=== PATIENT | female | born 1970 | race Caucasian/White ===

== ENCOUNTER → 2018-10-23 | Outpatient (CLI) | payer OTHER, SELFPAY ==
--- NOTE | 2018-10-23 15:31 | CT_ITS ---
STUDY: CT MAXILLOFACIAL SINUSES REASON FOR EXAM: Female, 48 years old. Chronic sinusitis. RADIATION DOSAGE (If Supplied By Facility): CTDIvol = ( 33.06 ) mGy, DLP = ( 879.30 ) mGycm TECHNIQUE: The patient was scanned in a multi detector CT scanner. High resolution axial imaging was performed without the administration of intravenous contrast material. Sagittal and coronal images were reconstructed. Individualized dose optimization techniques were used for this CT. COMPARISON: None. FINDINGS: Near total opacification of the frontal and ethmoid sinuses. Total opacification of the sphenoid sinuses. Moderate right and severe left maxillary sinus mucosal thickening. Occlusion of the bilateral maxillary infundibuli with normal uncinate processes, ethmoid bullae, and hiatus semilunaris. The turbinates are edematous left greater than right.. Normal midline nasal septum. Mastoid air cells are well aerated. The visualized osseous structures are normal. The visualized bilateral orbital contents are normal. CT/Sinus/Facial Bone IMPRESSION: Pansinusitis with most severe involvement of the sphenoid and ethmoid sinuses. Occlusion of the osteomeatal complexes. Electronically Signed: Rickey Torres MD at 4:18 EDT , Service support ,
== END | disposition home or self-care (01) ==
LOC: CT 15:27
PROVIDERS: Family Provider Family Medicine; PCP Family Medicine; Referring Provider Otolaryngology; Visit Provider Otolaryngology
DX: J32.9 Chronic sinusitis, unspecified (principal); J33.9 Nasal polyp, unspecified
CPT/HCPCS: 70486

== ENCOUNTER → 2018-12-12 | Outpatient (CLI) | payer OTHER, SELFPAY ==
[2017-02-02 13:45] VITALS: BMI 27.4
[2018-12-12 10:56] LABS: AST(SGOT) 35 U/L (15-37); Alanine Aminotransfer ALT/SGPT 33 U/L (13-56); Albumin, Serum 3.6 g/dL (3.2-5.0); Alkaline Phosphatase 103 U/L (45-117); Bilirubin, Direct 0.08 mg/dL (0.00-0.30); Calcium,Total 9.2 mg/dL (8.5-10.1); Free T3 1.7 pg/mL (2.18-3.98); Globulin 3.7 g/dL (2.2-4.2); Protein, Total 7.3 g/dL (6.4-8.2); T4 Free Direct 0.16 ng/dL (0.76-1.46)
[2018-12-12 15:11] LABS: Absolute Lymphocyte Count 1.76 X10^3/uL (0.83-4.51); Basophil# 0.06 X10^3/uL; Basophil% 0.7 % (0-1); Eosinophil# 0.58 X10^3/uL; Eosinophils% 6.4 % (0-5); Hematocrit 37.9 % (37-47); Lymphocyte # 1.76 X10^3/ul (4.0); Lymphocyte % 19.5 % (19-41); Mean Corp Hgb Conc 31.7 g/dL (32-36); Mean Corpuscular Hgb 28.8 pg (27.0-32.0); Mean Corpuscular Volume 91.1 fL (81-99); Mean Platelet Vol. 8.8 fl (6.2-12.0); Monocyte# 0.63 X10^3/uL; NRBC Flagged by Analyzer 0 % (0-5); Neutrophil # 5.99 X10^3/uL (2.7-7.7); Neutrophil % 66.2 % (47-70); Platelet Count 302 K/mm3 (150-450); RBC Distribution Width CV 13.8 % (11.6-14.6); RBC Distribution Width SD 46.4 fl (35.1-43.9); Red Blood Count 4.16 M/mm3 (4.2-5.4)
[2018-12-14 11:12] LABS: Thyroglobulin Antibody 42.7 IU/mL (0.0-0.9); Thyroid Peroxidase AB 426 IU/mL (0-34)
== END | disposition home or self-care (01) ==
PROVIDERS: Family Provider Family Medicine; PCP Family Medicine; Referring Provider Family Medicine; Visit Provider Family Medicine
DX: E05.00 Thyrotoxicosis with diffuse goiter without thyrotoxic crisis or storm (principal); R94.5 Abnormal results of liver function studies; E83.52 Hypercalcemia
CPT/HCPCS: 36415; 80076; 82310; 84439; 84443; 84445; 84481; 85025; 86376; 86800

== ENCOUNTER 2019-01-07 07:33 | Day surgery (SDC) | payer OTHER, SELFPAY ==
[2017-02-02 13:45] VITALS: BMI 27.4
--- NOTE | 2019-01-07 07:52 | EKG12_ITS ---
Test Reason : PREOP Blood Pressure : / mmHG Vent. Rate : 065 BPM Atrial Rate : 065 BPM P-R Int : 210 ms QRS Dur : 084 ms QT Int : 412 ms P-R-T Axes : 056 061 029 degrees QTc Int : 428 ms Sinus rhythm with 1st degree A-V block Otherwise normal ECG Confirmed by ABDIRIZAK JIMÉNEZ ([id number]), publications editor MIRELLA DAVIES ([id number]) on 01/14/2019 2:26:24 PM Referred By: Bhupendra Cortez Confirmed By:ABDIRIZAK JIMÉNEZ
[2019-01-07 08:05] LABS: Internal QC Validated? YES +Cl - CLEAR BKGD; Pregnancy, Urine Negative Negative
[2019-01-07 08:13] LABS: Hematocrit 37.5 % (37-47); Hemoglobin 11.5 g/dL (12.0-15.0); Mean Corp Hgb Conc 30.7 g/dL (32-36); Mean Corpuscular Hgb 27.4 pg (27.0-32.0); Mean Corpuscular Volume 89.5 fL (81-99); Mean Platelet Vol. 8.2 fl (6.2-12.0); Platelet Count 353 K/mm3 (150-450); RBC Distribution Width CV 14.6 % (11.6-14.6); Red Blood Count 4.19 M/mm3 (4.2-5.4)
[2019-01-07 08:24] VITALS: BP 107/64; PULSE 64; RESP 16; TEMP 36.9; O2SAT 99; BMI 28.6
[2019-01-07 08:36] LABS: Anion Gap 5 (5-15); BUN 13 mg/dL (7-18); BUN/Creat Ratio 21.8 RATIO (10-20); Chloride 105 mmol/L (98-107); EST Glomerular Filtration Rate 115 mL/min (>60); Est Glom Filt Rate - Afr Amer 139 mL/min (>60); Estimated Creatinine Clearance 125.35 ml/min; Glucose 98 mg/dL (74-106); Potassium 4.3 mmol/L (3.5-5.1); Sodium Level 140 mmol/L (136-145)
[2019-01-07] MEDS: Oxymetazoline 0.05% 1 SPRAY SPRAY.BTL 3 SPRAY NASAL (08:54)
--- NOTE | 2019-01-07 09:30 | ETH_PTH ---
PATIENT: KRISTI COOK LOC: [facility] – [place] U#:[id number] AGE/SX: 48/F ROOM: RE01/07/[address]: Dr. Bhupendra Cortez MD : 1970 BED: DIS: 01/07/2019 SPEC #: [id number] RECD: 01/07/19 12:24 STATUS: BRENNA JEAN #: [id number] RONALD: 01/07/19 09:[address]: Bhupendra Cortez DEPT: SURGICAL PATHOLOGY RECD BY: Nadeem Ortiz ENTERED: 01/07/19 13:27 SP TYPE: ETH TISS OTHR DR: Dr. Tiana Kumari MD Tissues: A - Ethmoid sinus, NOS B - Ethmoid sinus, NOS Procedures: Decalcification bone/plaque Surgery Specimen Level IV HEADER OPERATION: Total ethmoidectomy, maxillary antrostomy with tissue removal PRE-OP DIAGNOSIS: Nasal congestion, polyp nasal cavity, deviated septum TISSUE SUBMITTED: A. Right sinus contents, B. Left sinus contents MICROSCOPIC DIAGNOSIS A. Right sinus contents: Fragments of respiratory mucosa with chronic inflammation and bone. B. Left sinus contents: Fragments of respiratory mucosa with chronic inflammation and bone. HARDEEP:serge 01/10/19 MICROSCOPIC DESCRIPTION Slides are reviewed. GROSS DESCRIPTION A - Received in fixative is one container labeled with the patient's name and designated right sinus contents. The specimen consists of multiple fragments of pink frothy soft tissue mixed with possible fragments of bone that in aggregate measure 5 x 3 x 0.3 cm. The entire specimen is submitted in two cassettes after decalcification. B - Received in fixative is one container labeled with the patient's name and designated left sinus contents. The specimen consists of multiple fragments of pink frothy soft to mucoid tissue mixed with possible fragments of bone that in aggregate measure 7.5 x 3 x 0.3 cm. The entire specimen is submitted in three cassettes after decalcification. / HARDEEP:serge 01/07/19 TC: 3 CPT: 75236 x2, 14985 x2
[2019-01-07] MEDS: Oxymetazoline 0.05% 1 SPRAY SPRAY.BTL 15 SPRAY (10:40)
[2019-01-07] MEDS: Mupirocin Ointment 22gm Tube 1 APPLIC (10:50)
--- NOTE | 2019-01-07 10:50 | DCINST_ITS ---
You will use the following diet at home:: No restrictions Your food should be the consistency of: Regular Discharge Activity: Return to Normal Activity Additional Activity Instructions:: No noseblowing. Start irrigation with saline (4x/day) tomorrow. Allergies/Adverse Reactions: Allergies No Known Allergies Allergy (Verified 12/31/18 09:21) Medications to take at Discharge Ascorbic Acid [Vitamin C] 500 mg PO DAILY@0800 01/22/16 Cholecalciferol (Vitamin D3) [D3-2000] 4,000 unit PO DAILY 01/22/16 Methimazole 5 mg PO TID 01/22/16 Rivaroxaban [Xarelto] 20 mg PO DAILY 01/22/16 Biotin 10,000 mcg PO DAILY 01/03/17 Losartan Potassium [Cozaar] 25 mg PO DAILY 01/03/17 Prednisone 10 mg PO DAILY 12/31/18 Sea Of Greens 6 tab PO DAILY 12/31/18 Propranolol HCl 20 mg PO DAILY 01/07/19 Primary Care Physician: Tiana Kumari [Primary Care Provider] - Test Results: Test results from this visit will be discussed in further detail at your follow- up appointment, if applicable.
[2019-01-07 10:55] VITALS: BP 107/64; BP 130/81; PULSE 76; RESP 18; TEMP 36.4; O2SAT 97
--- NOTE | 2019-01-07 10:59 | PCM.OPRPT ---
Report of Operation Date of Procedure: 01/07/19 Pre-Operative Diagnosis: chronic sinusitis Post-Operative Diagnosis: same Surgery/Procedure Performed:: bilateral total ethmoidectomy, bilateral maxillary antrostomy with tissue removal, bilateral sphenoidotomy Description of Surgical Findings:: chronic inflammation and polyps. Fluid in the left maxillary sinus and bilateral sphenoid Type of Anesthesia:: General Anesthesiologist: Raymundo Jimenez Specimen's removed: as above Estimated Blood Loss (mL): minimal Description of Procedure: The patient was taken to the OR on 01/07/19. She was placed in the supine position on the OR table. She was given sufficient general endotracheal anesthesia. The head of bed was elevated 30 degrees. The navigation was placed and registered per protocol. 1%lidocaine with epinephrine was injected into bilateral polyps, bilateral middle turbinates and bilateral uncinate processes. The right middle turbinate was medialized with a freer elevator. A large mass of polyp was removed from the middle meatus with a microdebrider. A ball tipped sinus seeker was inserted into the right maxillary sinus. The maxillary antrostomy was created with a back biter. Polyp was removed from the maxillary sinus with a microdebrider. The uncinate process was taken down with a microdebrider. The ethmoid bulla was opened with a curette. The ethmoidectomy was then completed with a curette, Blakesley-wild forceps and a microdebrider. The right sphenoid was entered with a suction tip in the midline. This was confirmed with navigation. I then created a sphenoidotomy with a microdebrider. Hemostasis was achieved with afrin pledgets and then Ale. The left middle turbinate was medialized with a freer elevator. A large mass of polyp was removed from the middle meatus with a microdebrider. A ball tipped sinus seeker was inserted into the left maxillary sinus. The maxillary antrostomy was created with a back biter. Thick secretions were suctioned from the maxillary sinus. Polyp was removed from the maxillary sinus with a microdebrider. The uncinate process was taken down with a microdebrider. The ethmoid bulla was opened with a curette. The ethmoidectomy was then completed with a curette, Blakesley-wild forceps and a microdebrider. The left sphenoid was entered with a suction tip in the midline. This was confirmed with navigation. I then created a sphenoidotomy with a microdebrider. Thick inspissated secretions were suctioned from the sphenoid. Hemostasis was achieved with afrin pledgets and then Ale. The patient was then awoken and brought to the recovery room in stable condition. Blood loss minimal, replacement none. Sponge, needle and instrument count were correct at the end of the procedure.
[2019-01-07 11:00] VITALS: BP 107/64; BP 128/87; PULSE 71; RESP 16; O2SAT 97
[2019-01-07 11:15] VITALS: BP 107/64; BP 123/75; PULSE 68; RESP 16; TEMP 36.4; O2SAT 98
[2019-01-07] MEDS: HYDROcodone Bitartrate/Apap 5/325 Tablet PO (11:59)
[2019-01-07 12:39] VITALS: BP 107/64; BP 130/87; PULSE 72; RESP 16; TEMP 37.1; O2SAT 97
== END 2019-01-07 13:02 | disposition home or self-care (01) ==
LOC: SDC 07:38 → AC 07:40
PROVIDERS: Anesthesiology; Family Provider Family Medicine; PCP Family Medicine; Referring Provider Otolaryngology; Visit Provider Otolaryngology
PROC: (CPT 30520; principal; 2019-01-07 09:15)
DX: J34.2 Deviated nasal septum (principal); J33.0 Polyp of nasal cavity; J32.8 Other chronic sinusitis; R09.81 Nasal congestion; D64.9 Anemia, unspecified; D68.59 Other primary thrombophilia; F17.200 Nicotine dependence, unspecified, uncomplicated; I48.91 Unspecified atrial fibrillation; Z86.718 Personal history of other venous thrombosis and embolism; Z86.711 Personal history of pulmonary embolism; Z79.52 Long term (current) use of systemic steroids; Z79.02 Long term (current) use of antithrombotics/antiplatelets; Z79.899 Other long term (current) drug therapy
CPT/HCPCS: 31259; 31267; 36415; 80048; 81025; 84443; 85027; 88305; 88311; 93005; J7120; J2405

== ENCOUNTER → 2019-02-07 | Outpatient (CLI) | payer OTHER, SELFPAY ==
[2019-02-07 12:30] LABS: Calcium,Total 9.1 mg/dL (8.5-10.1); T4 Free Direct 0.64 ng/dL (0.76-1.46); Thyroid Stim Hormone (TSH) 0.44 uIU/mL (0.358-3.74)
[2019-02-17 11:26] LABS: Anti-Thyroglobulin AB 60.2 IU/mL (0.0-0.9); Thyroglobulin RIA 126 ng/mL (.); Thyroid Peroxidase AB 290 IU/mL (0-34)
== END | disposition home or self-care (01) ==
PROVIDERS: Family Provider Family Medicine; PCP Family Medicine; Referring Provider Family Medicine; Visit Provider Family Medicine
DX: R93.1 Abnormal findings on diagnostic imaging of heart and coronary circulation (principal); E05.00 Thyrotoxicosis with diffuse goiter without thyrotoxic crisis or storm
CPT/HCPCS: 36415; 82310; 84432; 84439; 84443; 84445; 84481; 86376; 86800

== ENCOUNTER → 2020-04-29 13:24 | Outpatient (CLI) | payer OTHER, SELFPAY ==
--- NOTE | 2020-04-29 13:33 | US_ITS ---
STUDY: THYROID ULTRASOUND REASON FOR EXAM: Female, 49 years old. GOITER, GRAVE''S DISEASE TECHNIQUE: Ultrasound evaluation of the thyroid was performed with real-time and static youngblood-scale imaging. COMPARISON: None. FINDINGS: RIGHT LOBE: The right lobe of the thyroid gland is enlarged and measures 8.7 cm x 4.4 cm x 3.3 cm. There is a heterogeneous echotexture. There is a 1.4 cm x 1 cm x 1.1 cm hyperechoic solid nodule in the inferior aspect of the right lobe. There is evidence of intranodular as well as perinodular vascularity. There is also evidence of a 3 mm x 3 mm x 4 mm solid hyperechoic nodule in the mid pole. Increased perinodular and into the nodule vascularity. LEFT LOBE: The left lobe of the thyroid gland is enlarged and measures 8.2 cm x 2.9 cm x 2.9 cm. There is a heterogeneous echotexture. There are no demonstrated solid, cystic or complex lesions. ISTHMUS: The isthmus measures 2.5 cm. 2 nodules are seen in the isthmus the larger measures 1 cm x 1.1 cm x 1.2 cm. The regional lymph nodes are normal. US/Thyroid IMPRESSION: Enlarged heterogeneous thyroid gland with nodular densities in the right lobe and isthmus. Electronically Signed: Alexey Sandra, at 15:27 EST , Service support ,
== END ==
PROVIDERS: PCP Family Medicine; Referring Provider Family Medicine; Visit Provider Family Medicine
DX: E04.9 Nontoxic goiter, unspecified (principal); E05.00 Thyrotoxicosis with diffuse goiter without thyrotoxic crisis or storm
CPT/HCPCS: 76536

== ENCOUNTER → 2020-06-12 16:15 | Outpatient (CLI) | payer OTHER, SELFPAY ==
--- NOTE | 2020-06-12 13:00 | ASPS_PTH ---
PATIENT: KRISTI COOK LOC: [facility] U#:[id number] AGE/SX: 54/F ROOM: RE06/12/[address]: Dr. Prince Marquez MD : 1970 BED: DIS: SPEC #: [id number] RECD: 06/12/20 16:03 STATUS: BRENNA JEAN #: [id number] RONALD: 06/12/20 13:[address]: Prince Marquez DEPT: CYTOLOGY RECD BY: Roxanna Brown ENTERED: 06/15/20 07:42 SP TYPE: ASPIRATION OTHR DR: Dr. Tiana Kumari MD Tissues: Thyroid isthmus Procedures: Special Stain Group II Cytology Other HEADER OPERATION: Isthmus biopsy PRE-OP DIAGNOSIS: Isthmus nodule TISSUE SUBMITTED: Isthmus slides x6 DIAGNOSIS CYTOLOGY Fine needle aspiration, thyroid isthmus nodule (smears): Adequate for evaluation. Negative, consistent with benign follicular nodule. AM:serge 06/16/2020 CYTOLOGY STUDY Slides are reviewed. CYTOLOGY GROSS Received are six smears labeled with the patient's name and designated per the requisition as isthmus. Submitted for staining. / rg 06/15/2020 TC:5 CPT: 57424
[2020-06-12 14:09] VITALS: BMI 31.3
== END ==
PROVIDERS: PCP Family Medicine; Referring Provider Surgery; Visit Provider Surgery
DX: J38.2 Nodules of vocal cords (principal)
CPT/HCPCS: 88161; 88313

== ENCOUNTER → 2021-02-15 16:15 | Outpatient (CLI) | payer OTHER, SELFPAY ==
[2021-02-15 18:40] LABS: Free T3 4.5 pg/mL (2.18-3.98); T4 Free Direct 0.44 ng/dL (0.76-1.46); Thyroid Stim Hormone (TSH) 2.04 uIU/mL (0.358-3.74)
== END ==
PROVIDERS: PCP Family Medicine; Referring Provider Family Medicine; Visit Provider Family Medicine
DX: E03.9 Hypothyroidism, unspecified (principal)
CPT/HCPCS: 36415; 84439; 84443; 84481

== ENCOUNTER 2022-10-11 16:04 | Emergency (ER) | payer OTHER, SELFPAY ==
[2022-10-11] VITALS (8 sets, daily range): BP systolic 105–126; BP diastolic 69–83; PULSE 98–110; RESP 16–18; TEMP 36.4–36.8; O2SAT 91–98; BMI 28.1
--- NOTE | 2022-10-11 16:50 | RAD_ITS ---
INDICATION: SOB EXAMINATION/TECHNIQUE: X-RAY - XR Chest 1 View COMPARISON: October 12, 2015 FINDINGS: LINES/DEVICES: None. LUNGS: No consolidation, edema or effusion. No pneumothorax. MEDIASTINUM AND CARDIOVASCULAR STRUCTURES: Cardiac silhouette not enlarged. Central airways and mediastinal contour are unremarkable. BONES AND SOFT TISSUES: Unremarkable. RAD/Chest 1 View (Portable) IMPRESSION: No radiographic evidence of acute cardiopulmonary disease. Electronically Signed: Ephraim Perales DO at 17:46 EDT ,
--- NOTE | 2022-10-11 16:59 | ED.RN ---
PT REFUSING COVID TEST AT THIS TIME
[2022-10-11 17:08] LABS: Absolute Lymphocyte Count 1.78 X10^3/uL (0.83-4.51); Absolute Neutrophil Count 6.2 X10^3/uL (2.0-7.7); Basophil# 0.06 X10^3/uL; Basophil% 0.6 % (0-1); Eosinophil# 1.22 X10^3/uL; Eosinophils% 12.1 % (0-5); Hematocrit 45.8 % (37-47); Hemoglobin 14.6 g/dL (12.0-15.0); Lymphocyte # 1.78 X10^3/ul (0.83-4.51); Lymphocyte % 17.6 % (19-41); Mean Corp Hgb Conc 31.9 g/dL (32-36); Mean Corpuscular Hgb 28.5 pg (27.0-32.0); Mean Corpuscular Volume 89.3 fL (81-99); Mean Platelet Vol. 8.9 fl (6.2-12.0); Monocyte# 0.78 X10^3/uL; Monocyte% 7.7 % (0-10); NRBC Flagged by Analyzer 0 % (0-5); Neutrophil # 6.22 X10^3/uL (2.7-7.7); Neutrophil % 61.7 % (47-70); Platelet Count 275 K/mm3 (150-450); RBC Distribution Width CV 13.5 % (11.6-14.6); RBC Distribution Width SD 44.2 fl (35.1-43.9); Red Blood Count 5.13 M/mm3 (4.2-5.4); White Blood Count 10.1 K/mm3 (4.4-11.0)
[2022-10-11 17:21] LABS: Anion Gap 6 (5-15); BUN 13 mg/dL (7-18); BUN/Creat Ratio 38.7 RATIO (10-20); Calcium,Total 9.8 mg/dL (8.5-10.1); Chloride 109 mmol/L (98-107); Creatinine, Serum 0.34 mg/dL (0.55-1.02); EST Glomerular Filtration Rate 219 mL/min (>60); Est Glom Filt Rate - Afr Amer 265 mL/min (>60); Estimated Creatinine Clearance 211.68 ml/min; Glucose 105 mg/dL (74-106); Potassium 4.3 mmol/L (3.5-5.1); Sodium Level 140 mmol/L (136-145)
--- NOTE | 2022-10-11 17:47 | EDS_ITS ---
HPI History of Present Illness Chief Complaint: Shortness of Breath Informant: patient Narrative Narrative: Presents with cough and dyspnea. Patient states that about 10 days ago she started coughing. She has brought up some light woody sputum at times. Never coughed up blood. She is not having chest pain. She has had intermittent wheezing but that is gotten worse. She just saw her doctor for this. She was placed on Augmentin and took her first dose last night. She states she is not getting better but then she states she is actually feeling a little bit better now that she has been waiting here. She has a history of blood clots and is prescribed and has been taking her Xarelto appropriately. She is not having pains in the chest. Subjective fevers but no measured temperature. Her biggest complaint is that she is hearing a lot of wheezing. She is a smoker, is still smoking was counseled to quit smoking. [facility] Medical History Anemia Atrial fibrillation Clotting disorder Graves disease History of blood transfusion History of DVT (deep vein thrombosis) history of uterine surgery Low protein C activity level Multiple thyroid nodules Seasonal allergies Thyroid disease Home Medications ascorbic acid (vitamin C) 500 mg tablet 500 mg PO DAILY@0800 SUPPLEMENT 01/22/16 [History Last Taken 01/22/16 08:30] cholecalciferol (vitamin D3) 50 mcg (2,000 unit) capsule 4,000 unit PO DAILY 01/22/16 [History Last Taken 01/22/16 08:00] methimazole 10 mg tablet 5 mg PO TID THYROID 01/22/16 [History Last Taken 01/07/19] rivaroxaban 20 mg tablet 20 mg PO DAILY DVT HX 01/22/16 [History Last Taken 12/30/18] Biotin 10,000 mcg PO DAILY SUPPLEMENT 01/03/17 [History Last Taken Unknown] losartan 25 mg tablet 25 mg PO DAILY A-FIB 01/03/17 [History Last Taken 01/07/19] Sea [place] 6 tab PO DAILY 12/31/18 [History Last Taken Unknown] Allergy/AdvReac Type Severity Reaction Status Date / Time No Known Allergies Allergy Verified 10/11/22 16:08 Family History Father Hyperlipemia Diabetes Grandmother Breast cancer Colon cancer Diabetes Hyperlipemia Surgical History Hx of cholecystectomy Previous back surgery Status post fine needle aspiration (~05/2020) [place] teeth extracted Social History Smoking Status: Current every day smoker tobacco type: cigarettes alcohol intake: current alcohol intake frequency: a few times a week Alcohol type: beer and wine ROS ROS ED ROS Narrative A complete review of systems was performed and is negative except as documented in the history of present illness. Some specific details below. Constitutional: No recent fevers but she has had some mild subjective fevers. EYE: No discharge, visual complaints, or pain. ENT: No difficulty swallowing. No swelling. No pain. No reflux symptoms. No thrush. CV: Denies chest pain or palpitations. Respiratory: See history of present illness. GI: No abdominal pain. No nausea vomiting diarrhea. No blood in stool. : No frequency dysuria or hematuria. Musculoskeletal: No recent trauma. No pains. No swelling. Skin: No rash. Nondiaphoretic. Neuro: No weakness or numbness. Endocrine: No polyuria or polydipsia. EXAM Physical Exam Narrative Exam Narrative: CONSTITUTIONAL: Patient is nontoxic in appearance. The patient looks comfortable. Work of breathing looks normal. She has been walking in the department and walked out to get her once. No indication of dyspnea with ambulation. HEENT: No notable trauma. Mucous membranes moist. No sinus tenderness. No indication of pain with swallowing. EYES: No conjunctival injection. No proptosis. NECK:No JVD. No stridor. CARDIOVASCULAR: Although she has a history of atrial fibrillation she does appear to have a regular rate and regular rhythm. No notable murmur. No JVD. RESPIRATORY: No respiratory distress. Breathing is unlabored. She has diffuse wheezes throughout. No rhonchi. No rales. No pain with a deep breath. No chest wall tenderness. I checked her albuterol inhaler. She has an inhaler buther GASTROINTESTINAL: Not distended. Bowel sounds are normal. No tenderness. No guarding. No rebound. No palpable mass. No bruit is heard. GENITOURINARY: No tenderness over the bladder. No CVA tenderness. MUSCULOSKELETAL: Atraumatic. No peripheral edema. No cord. No tenderness along the deep venous system. No asymmetry. No distended veins. NEUROLOGICAL: Patient is alert and appropriate. No focal deficit noted. SKIN: No noted rashes. No diaphoresis. PSYCHIATRIC: Patient is calm. Mood is appropriate. Const Vital Signs: 10/11/22 16:05 10/11/22 18:07 10/11/22 16:28 Temperature 97.5 F L Temperature Source Temporal Pulse Rate 108 H 110 H Respiratory Rate 18 18 Respiratory Effort Respiratory Depth Respiratory Pattern Normal Blood Pressure 126/83 H Blood Pressure Mean 97 Pulse Ox 91 96 Oxygen Delivery Method Room Air Room Air 10/11/22 16:28 10/11/22 16:08 10/11/22 17:08 Temperature 98.1 F 98.0 F Temperature Source Temporal Temporal Pulse Rate 105 H 103 H Respiratory Rate 18 16 Respiratory Effort Respiratory Depth Respiratory Pattern Blood Pressure 105/78 108/69 Blood Pressure Mean 87 82 Pulse Ox 96 97 98 Oxygen Delivery Method Room Air Room Air Room Air 10/11/22 18:08 10/11/22 18:49 Temperature 98.2 F Temperature Source Temporal Pulse Rate 100 Respiratory Rate 18 Respiratory Effort Normal Non-Labored Respiratory Depth Normal Respiratory Pattern Normal Blood Pressure 107/72 Blood Pressure Mean 83 Pulse Ox 97 Oxygen Delivery Method Room Air Room Air MDM MDM MDM Narrative Medical decision making narrative: My independent interpretation of her single view chest x-ray shows no acute infiltrative process. No pneumothorax. Mediastinum looks normal. Final reading by radiology is no radiographic evidence of acute cardiopulmonary disease. CBC is normal. Electrolytes are normal other than mild increased BUN to creatinine ratio but she has a normal creatinine. Glucose and calcium are normal. Patient was given Decadron and respiratory treatments. We talked about prednisone but she states when she took prednisone and it caused a flulike illness. I explained that this may have been the illness for which she was taking the prednisone. This would not be a true allergy and I think she will benefit from steroids. We will try a dose of Decadron. I explained that she may need repeat dosing in a few days though. Patient will be rechecked. Patient feels much better after her breathing treatment. Saturations are now up to 97% on room air showing no hypoxia and she has been walking around without difficulty. She wants to go home. She has her Augmentin which she is taking. I recommend continue that. I told her she should try to see her physician on Monday as she may need a second dose of Decadron. I Deborah see if we can get a spacer for her inhaler. We discussed reasons to return. Lab Data Attestation: I reviewed the patient's lab results. Labs: Laboratory Results - last 24 hr 10/11/22 10/11/22 16:45 16:45 WBC 10.1 RBC 5.13 Hgb 14.6 Hct 45.8 MCV 89.3 MCH 28.5 MCHC 31.9 L RDW Std Deviation 44.2 H RDW Coeff of Andres 13.5 Plt Count 275 MPV 8.9 Immature Gran % (Auto) 0.300 Neut % (Auto) 61.7 Lymph % (Auto) 17.6 L Hettinger % (Auto) 7.7 Eos % (Auto) 12.1 H Baso % (Auto) 0.6 Absolute Neuts (auto) 6.2 Absolute Lymphs (auto) 1.78 Nucleated RBC % 0 Sodium 140 Potassium 4.3 Chloride 109 H Carbon Dioxide 25.0 Anion Gap 6 BUN 13 Creatinine 0.34 L Estim Creat Clear Calc 211.68 Est GFR (MDRD) Af Amer 265 Est GFR (MDRD) Non-Af 219 BUN/Creatinine Ratio 38.7 H Glucose 105 Calcium 9.8 Radiography Diagnostic Testing: Clinical Impression(s) from Imaging Studies Chest X-Ray 10/11/22 16:50 IMPRESSION: No radiographic evidence of acute cardiopulmonary disease. Electronically Signed: Ephraim Perales DO at 17:46 EDT Reading Location ID and State: [facility] / [place] Tel [phone], Service support , Discharge Plan Triage Chief Complaint: Shortness of Breath ED Provider: Thomas Mancilla Dx/Rx/DC Orders Clinical Impression: Acute bronchospasm, URI, acute Instructions: ED Bronchospasm (Adult) Prescriptions: No Action ascorbic acid (vitamin C) 500 MG tablet 500 mg PO DAILY@0800 Label Comments: SUPPLEMENT methimazole 10 MG tablet 5 mg PO TID Label Comments: THYROID cholecalciferol (vitamin D3) 2,000 UNIT capsule 4,000 unit PO DAILY Label Comments: SUPPLEMENT rivaroxaban 20 MG tablet 20 mg PO DAILY Label Comments: BLOOD THINNER Biotin 10,000 MCG tablet 10,000 mcg PO DAILY losartan 25 MG tablet 25 mg PO DAILY [place] 6 tab PO DAILY Primary Care Provider: OSCAR VILLAGOMEZ Referrals: OSCAR VILLAGOMEZ [Other] - 2 Days Disposition Disposition: Home, Self Care
[2022-10-11] MEDS: Albuterol 2.5 MG/3 ML VIAL.NEB. INHALATION (18:06)
[2022-10-11] MEDS: Ipratropium/Albuterol Sulfate 3 ML AMPUL.NEB INHALATION (18:06)
[2022-10-11] MEDS: dexAMETHasone 4 MG Tablet 10 MG PO (19:11)
== END 2022-10-11 20:05 | disposition home or self-care (01) ==
PROVIDERS: Emergency Provider Emergency Medicine; Visit Provider Emergency Medicine
DX: J06.9 Acute upper respiratory infection, unspecified (principal); I48.91 Unspecified atrial fibrillation; J98.01 Acute bronchospasm; Z79.01 Long term (current) use of anticoagulants; Z86.718 Personal history of other venous thrombosis and embolism; E07.9 Disorder of thyroid, unspecified; Z79.899 Other long term (current) drug therapy; Z90.49 Acquired absence of other specified parts of digestive tract; F17.290 Nicotine dependence, other tobacco product, uncomplicated
CPT/HCPCS: 71045; 80048; 85025; 94640; 94760; 99284; A4216

== ENCOUNTER 2023-02-22 01:12 | Emergency (ER) | payer OTHER, SELFPAY ==
--- NOTE | 2023-02-22 01:44 | EKG12_ITS ---
Test Reason : DYSRHYTHMIA Blood Pressure : / mmHG Vent. Rate : 090 BPM Atrial Rate : 090 BPM P-R Int : 192 ms QRS Dur : 074 ms QT Int : 350 ms P-R-T Axes : 042 042 031 degrees QTc Int : 428 ms Normal sinus rhythm Normal ECG No previous ECGs available Confirmed by JANEL PERDOMO, YUNG ([id number]), editor trade journal KATHRYN VALVERDE ([id number]) on 04/03/2023 10:50:13 AM Referred By: FILEMON Confirmed By:AYANNA ISLAS MD
--- NOTE | 2023-02-22 02:15 | RAD_ITS ---
STUDY: X-RAY CHEST REASON FOR EXAM: Female, 52 years old patient with chest pain. TECHNIQUE: Single AP portable view of the chest. COMPARISON: October 11, 2022. FINDINGS: Cardiac monitoring leads are present. The lungs are expanded. There are prominent bronchovascular markings in both lungs. There is no demonstrated pleural abnormality. There is mild cardiac enlargement. Normal mediastinum and rosangela. There is prominence of the pulmonary hilar arteries with peripheral pulmonary vascular congestion. Normal visualized aortic arch and descending thoracic aorta. Normal visualized thoracic spine. Normal visualized ribs, clavicles, and shoulders. There is no demonstrated abnormality of the visualized soft tissue structures of the upper abdomen. RAD/Chest 1 View (Portable) IMPRESSION: Cardiomegaly and mild pulmonary vascular congestion. Electronically Signed: Roseanne Simeon MD at 2:49 EDT ,
--- NOTE | 2023-02-22 03:23 | CT_ITS ---
STUDY: CTA CHEST REASON FOR EXAM: Female, 52 years old. CP RADIATION DOSAGE (If Supplied By Facility): CTDIvol = ( 11.52 ) mGy, DLP = ( 448.17 ) mGycm TECHNIQUE: The examination was performed with the intravenous administration of 100 mL of Isovue-370. Post-processing of the angiographic images was performed, with multiplanar reformation and 3D reconstruction. Individualized dose optimization techniques were used for this CT. COMPARISON: CT of the chest dated October 12, 2015. FINDINGS: Cardiac monitoring leads are present. Thyroid is enlarged with multiple nodules suggesting a goiter. Normal enhancement of the main pulmonary artery and right and left pulmonary arteries. Normal enhancement of the bilateral peripheral pulmonary arteries. There is a tiny subsegmental pulmonary embolus the right lower lobe. Normal thoracic aorta and visualized great vessels. There is no demonstrated aortic dissection. Normal heart and pericardium. Normal mediastinum. Normal hilar regions. Normal visualized trachea and bronchi. The lungs are well expanded. There appears to be bilateral lower lobe subsegmental atelectasis. There is also suggestion of possible patchy airspace disease with both airspace consolidation as well as groundglass attenuation. Normal pleura. Normal chest wall structures. There are degenerative changes of thoracic spine. Normal visualized upper abdomen. CT/CTA Chest W/WO Contrast IMPRESSION: 1. Small right basilar subsegmental pulmonary embolus. 2. No CTA demonstrated arterial dissection. 3. Bilateral patchy basilar airspace disease suggests multifocal pneumonia. N.B. : The above Results were Read Back by Roseanne Simeon MD to Melina Rubio DO, and understanding confirmed on 02/22/2023 04:17:11 (ET). Electronically Signed: Roseanne Simeon MD at 4:18 EDT ,
--- NOTE | 2023-02-22 06:00 | EKG12_ITS ---
Test Reason : DYSRHYTHMIA Blood Pressure : / mmHG Vent. Rate : 180 BPM Atrial Rate : 000 BPM P-R Int : 000 ms QRS Dur : 070 ms QT Int : 242 ms P-R-T Axes : 000 068 062 degrees QTc Int : 419 ms Critical Test Result: High HR Atrial fibrillation with rapid ventricular response Nonspecific ST and T wave abnormality Abnormal ECG Confirmed by JAMES ROGERS MD ([id number]), newspaper copy editor MIRELLA DAVIES ([id number]) on 02/28/2023 12:35:04 PM Referred By: PL Confirmed By:JAMES ROGERS MD
--- NOTE | 2023-02-22 06:06 | EDS_ITS ---
HPI History of Present Illness Informant: patient and spouse/S.O. Narrative Narrative: Patient is a 52-year-old female with past medical history of protein C deficiency previous DVT with failure of Coumadin currently on Xarelto as well as smoking history with hypertension and hypothyroidism. She states that she has been told she has bronchospasm which can cause intermittent recurrent chest pain. She states that in the past steroids have helped with this. She states she has been on steroids but over the last 1 to 2 days has been having increasing chest discomfort and secondary to this comes in for evaluation. [facility] Medical History Anemia Atrial fibrillation Clotting disorder Graves disease History of blood transfusion History of DVT (deep vein thrombosis) history of uterine surgery Low protein C activity level Multiple thyroid nodules Seasonal allergies Thyroid disease Home Medications ascorbic acid (vitamin C) 500 mg tablet 500 mg PO DAILY@0800 SUPPLEMENT 01/22/16 [History Last Taken 01/22/16 08:30] cholecalciferol (vitamin D3) 50 mcg (2,000 unit) capsule 4,000 unit PO DAILY 01/22/16 [History Last Taken 01/22/16 08:00] methimazole 10 mg tablet 5 mg PO TID THYROID 01/22/16 [History Last Taken 01/07/19] rivaroxaban 20 mg tablet 20 mg PO DAILY DVT HX 01/22/16 [History Last Taken 12/30/18] Biotin 10,000 mcg PO DAILY SUPPLEMENT 01/03/17 [History Last Taken Unknown] losartan 25 mg tablet 25 mg PO DAILY A-FIB 01/03/17 [History Last Taken 01/07/19] [place] 6 tab PO DAILY 12/31/18 [History Last Taken Unknown] azithromycin 250 mg tablet (Zithromax Z-Rashad) See Rx Instructions PO .COMPLEX #12 tabs 02/22/23 [Rx Last Taken Unknown] doxycycline hyclate 100 mg capsule 100 mg PO BID 10 days #20 caps 02/22/23 [Rx Last Taken Unknown] fluticasone fur. 100 mcg-umeclid 62.5 mcg-vilant 25 mcg inhalat.powder (Trelegy Ellipta) 1 inh inhalation DAILY #60 ea 02/22/23 [Rx Last Taken Unknown] oxycodone-acetaminophen 5 mg-325 mg tablet (Percocet) 1 tab PO Q6H PRN pain 3 days #12 tabs 02/22/23 [Rx Last Taken Unknown] Allergy/AdvReac Type Severity Reaction Status Date / Time No Known Allergies Allergy Verified 10/11/22 16:08 Family History Father Hyperlipemia Diabetes Grandmother Breast cancer Colon cancer Diabetes Hyperlipemia Surgical History Hx of cholecystectomy Previous back surgery Status post fine needle aspiration (~05/2020) [place] teeth extracted Social History Smoking Status: Current every day smoker tobacco type: cigarettes alcohol intake: current alcohol intake frequency: a few times a week Alcohol type: beer and wine ROS ROS ED Constitutional Constitutional ED: Denies chills or fever(s) ENT ENT ED: Denies rhinorrhea or sore throat Cardiovascular Cardiovascular: Reports chest pain; Denies palpitations or racing heartbeat Respiratory/Chest Respiratory/Chest: Reports dyspnea; Denies cough Gastrointestinal Gastrointestinal: Denies abdominal pain, diarrhea, nausea or vomiting Genitourinary Genitourinary ED: Denies dysuria Musculoskeletal Musculoskeletal: Denies myalgias Integumentary Denies rash Neurologic Neurologic: Denies headache(s) Hematologic/Lymphatic Hematologic/Lymphatic: Reports easy bleeding and easy bruising EXAM Physical Exam Const Positive well nourished and well developed General Appearance ED: well developed; Negative for pallor HEENT Reports moist mucous membranes HEENT Narrative: No tongue or lip swelling no oral lesions no airway edema or compromise Eyes PERRL and EOMs intact bilaterally General Eye ED: Negative for scleral icterus Neck supple and No no JVD Chest Wall palpation of chest normal Chest Narrative: No bony deformity or crepitance Resp normal respiratory effort Resp Narrative: Breath sounds are diminished throughout with faint expiratory wheeze otherwise no nasal flaring retractions tachypnea or accessory muscle use Cardio regular rate and regular rhythm Rate: other Other Details: Carotid and radial pulses are equal and symmetric No murmurs rubs or gallops noted GI non-tender, non-distended and no masses GI Narrative: Abdomen is soft nontender nondistended hypoactive bowel sounds no voluntary guarding or rigidity no pulsatile mass Auscultation: hypoactive bowel sounds Palpation: soft Back/Spine no CVA tenderness Extremity normal to inspection Extremity Narrative: No asymmetric edema no pitting edema negative Homans' sign bilaterally Neuro oriented x3, CN's II-XII intact bilaterally and no sensory deficits noted Sensorium / Orientation: alert Motor Exam: strength 5/5 throughout Psych mental status grossly normal Skin no rashes or lesions noted General Skin Exam: Negative for jaundice or pallor MDM MDM MDM Narrative Medical decision making narrative: Patient presented to the ER afebrile and in no acute respiratory distress satting in the high 90s on room air. She reported history of bronchospasm leading to chest pain in the past but it has been worse over the last 1 to 2 days and not improving with her normal medication. Differential diagnosis is for pneumonia versus pneumothorax versus pericarditis versus acute coronary syndrome versus pulmonary embolus. Secondary to this basic labs were obtained which revealed an elevated white count but patient's been on steroids as this is not uncommon. Her glucose is also elevated which is common with the reported steroid use. Troponin was normal at 5 going against acute coronary syndrome and EKG was normal without changes concerning for pericarditis. Chest x-ray revealed cardiomegaly with vascular congestion and patient does not have a history of heart failure and therefore there is concern that pulmonary embolus could be leading to these findings on imaging as well as her chest pain so a CTA was ordered. This did show a small PE in the subsegmental branch but no heart strain or signs of congestive heart failure. Based on the fact she states she has failed Coumadin use and is now on Xarelto and now COVID tendency be listed as feeling this medication and the case was discussed with oncology who states that because the PE is so small and not affecting the heart or oxygen level that she can to stay on her Xarelto at this time. The patient has changes concerning for multifocal pneumonia but she is not hypoxic or in distress so she will be started on oral antibiotics but does not need IV antibiotics or admission at this time. Patient was informed of these findings and plan of care she is agreeable to it and therefore will discharged and can follow-up on an outpatient basis History & Record Review Discussion w/independent historian: Patient Lab Data Attestation: I reviewed the patient's lab results. Radiography Diagnostic Testing: Clinical Impression(s) from Imaging Studies Chest X-Ray 02/22/23 02:15 IMPRESSION: Cardiomegaly and mild pulmonary vascular congestion. Electronically Signed: Roseanne Simeon MD at 2:49 EDT , Chest CTA 02/22/23 03:23 IMPRESSION: 1. Small right basilar subsegmental pulmonary embolus. 2. No CTA demonstrated arterial dissection. 3. Bilateral patchy basilar airspace disease suggests multifocal pneumonia. N.B. : The above Results were Read Back by Roseanne Simeon MD to Melina Rubio DO, and understanding confirmed on 02/22/2023 04:17:11 (ET). Electronically Signed: Roseanne Simeon MD at 4:18 EDT , 1 view chest x-ray is interpreted by the emergency medicine physician reveals mild cardiomegaly and slight pulmonary vascular congestion without acute infiltrate or pneumothorax Discharge Plan Dx/Rx/DC Orders Clinical Impression: Single subsegmental pulmonary embolism without acute cor pulmonale, Bronchosp asm, Multifocal pneumonia, Nicotine dependence, Protein C deficiency, Hypertension Instructions: ED Bronchospasm (Adult) Prescriptions: New oxycodone-acetaminophen [Percocet] 5-325 mg tablet 1 tab PO Q6H PRN (Reason: pain) 3 Days Qty: 12 0RF Trelegy Ellipta 100-62.5-25 mcg blister with device 1 inh inhalation DAILY Qty: 60 0RF azithromycin [Zithromax Z-Rashad] 250 mg tablet See Rx Instructions .ROUTE .COMPLEX Qty: 12 0RF Rx Instructions: For 250 mg dose pack: take 500 mg today (day 1), then 250 mg for 4 days (days 2-5). Repeat same instructions for the second blister pack doxycycline hyclate 100 mg capsule 100 mg PO BID 10 Days Qty: 20 0RF No Action ascorbic acid (vitamin C) 500 MG tablet 500 mg PO DAILY@0800 Patient Comments: SUPPLEMENT methimazole 10 MG tablet 5 mg PO TID Patient Comments: THYROID cholecalciferol (vitamin D3) 2,000 UNIT capsule 4,000 unit PO DAILY Patient Comments: SUPPLEMENT rivaroxaban 20 MG tablet 20 mg PO DAILY Patient Comments: BLOOD THINNER Biotin 10,000 MCG tablet 10,000 mcg PO DAILY losartan 25 MG tablet 25 mg PO DAILY [place] 6 tab PO DAILY Primary Care Provider: OSCAR VILLAGOMEZ Referrals: OSCAR VILLAGOMEZ [Other] Hank Tolentino MD [Med Staff - Active Staff] - Activity Restrictions/Additional Instructions: Please continue your Xarelto as previously directed. However because you have failed Coumadin and now have a small blood clot while on Xarelto follow-up with hematology/oncology to discuss potential testing and other treatment options. Disposition Disposition: Home, Self Care
[2023-02-22 08:31] LABS: International Normalized Ratio 1.1; Partial Thromboplast Time 28.5 Seconds (24.1-36.2); Prothrombin Time (Protime)PT. 14.6 SECONDS (11.7-14.9)
[2023-02-22 09:18] LABS: Anion Gap 6 (5-15); BUN 11 mg/dL (7-18); BUN/Creat Ratio 14.1 RATIO (10-20); Chloride 103 mmol/L (98-107); Creatinine, Serum 0.78 mg/dL (0.55-1.02); EST Glomerular Filtration Rate 83 mL/min (>60); Est Glom Filt Rate - Afr Amer 101 mL/min (>60); Glucose 218 mg/dL (74-106); Potassium 3.9 mmol/L (3.5-5.1); Sodium Level 137 mmol/L (136-145); Troponin-I HS 5 pg/mL (3.0-54.0)
[2023-02-22 12:15] LABS: Absolute Lymphocyte Count 1.65 X10^3/uL (0.83-4.51); Absolute Neutrophil Count 13.4 X10^3/uL (2.0-7.7); Basophil% 0.2 % (0-1); Eosinophils% 1.2 % (0-5); Hematocrit 41.3 % (37-47); Hemoglobin 13.7 g/dL (12.0-15.0); Lymphocyte # 1.65 X10^3/ul (0.83-4.51); Lymphocyte % 9.9 % (19-41); Mean Corp Hgb Conc 33.2 g/dL (32-36); Mean Corpuscular Hgb 30.1 pg (27.0-32.0); Mean Corpuscular Volume 90.8 fL (81-99); Mean Platelet Vol. 8.5 fl (6.2-12.0); Monocyte# 1.25 X10^3/uL; Monocyte% 7.5 % (0-10); Neutrophil # 13.44 X10^3/uL (2.7-7.7); Neutrophil % 80.8 % (47-70); Platelet Count 209 K/mm3 (150-450); RBC Distribution Width CV 15.1 % (11.6-14.6); RBC Distribution Width SD 49.9 fl (35.1-43.9); Red Blood Count 4.55 M/mm3 (4.2-5.4); White Blood Count 16.7 K/mm3 (4.4-11.0)
[2023-02-22 12:16] LABS: Basophil# 0.04 X10^3/uL; NRBC Flagged by Analyzer 0 % (0-5)
== END 2023-02-22 06:55 | disposition home or self-care (01) ==
PROVIDERS: Emergency Medicine; Emergency Provider Emergency Medicine; Visit Provider Emergency Medicine
DX: I26.93 Single subsegmental thrombotic pulmonary embolism without acute cor pulmonale (principal); D68.59 Other primary thrombophilia; J98.01 Acute bronchospasm; J18.9 Pneumonia, unspecified organism; I10 Essential (primary) hypertension; F17.210 Nicotine dependence, cigarettes, uncomplicated; Z79.01 Long term (current) use of anticoagulants; Z86.718 Personal history of other venous thrombosis and embolism
CPT/HCPCS: 36415; 71045; 71275; 80048; 84484; 85025; 85610; 85730; 93005; 94640; 96361; 96374; 96375; 99285; J7030; Q9967; A4216; J2405

== ENCOUNTER 2023-02-23 05:28 | Inpatient (IN) | payer OTHER, SELFPAY ==
[2023-02-23] VITALS (30 sets, daily range): BP systolic 77–122; BP diastolic 63–92; PULSE 68–165; RESP 14–26; TEMP 35.8–37.2; O2SAT 88–100; BMI 29.6; BMI 29.9
--- NOTE | 2023-02-23 05:52 | EKG12_ITS ---
Test Reason : CHEST PAIN Blood Pressure : / mmHG Vent. Rate : 086 BPM Atrial Rate : 000 BPM P-R Int : 000 ms QRS Dur : 080 ms QT Int : 350 ms P-R-T Axes : 000 055 037 degrees QTc Int : 418 ms Atrial fibrillation Abnormal ECG When compared with ECG of 23-FEB-2023 06:07, MANUAL COMPARISON REQUIRED, DATA IS UNCONFIRMED Confirmed by KEN PERDOMO, JAMES ([id number]), communications editor NIKITA MCKINNON ([id number]) on 03/16/2023 11:37:04 AM Referred By: Confirmed By:JAMES ROGERS MD
--- NOTE | 2023-02-23 05:57 | EDS_ITS ---
HPI History of Present Illness Chief Complaint: Chest Other Informant: patient and spouse/S.O. Narrative Narrative: Presents with chest pain. It takes quite a bit of questioning to get the story from this patient. Many times when asked questions she will answer with I just don't feel good. It sounds like she has a history of some bronchospasm. She usually does not get pain with this. But she was in here yesterday. She was having bronchospasm with pain. She has had DVTs and PEs. It sounds like many years ago she was on Coumadin and she had a DVT break loose and go to her lungs while she was on Coumadin. I do not know if she was therapeutic at the time or not. But at that point she was switched to Xarelto and she has been on Xarelto for years. It is very hard to get when her symptoms started this time. But it sounds like she was on a course of steroids so I am assuming her symptoms are at least a week old. She had finished the steroids was still having pain so she came in yesterday. I reviewed much of that visit. She had a CT that showed a small pulmonary embolus but also showed some patchy diffuse pneumonia. She was kept on Xarelto. Contact with her associate principal was made. They added antibiotics. It sounds like she has filled the antibiotics. I do not think she started the new steroids that were given. She states she is taking the Percocet. She last took it just past midnight. She states she gets intermittent painful spasms on the right side of her chest. She does sound like she feels short of breath. She frequently states, I just don't feel good. She does not feel comfortable going home. [facility] Medical History Anemia Atrial fibrillation Clotting disorder Graves disease History of blood transfusion History of DVT (deep vein thrombosis) history of uterine surgery Low protein C activity level Multiple thyroid nodules Seasonal allergies Thyroid disease Home Medications ascorbic acid (vitamin C) 500 mg tablet 500 mg PO DAILY@0800 SUPPLEMENT 01/22/16 [History Last Taken 01/22/16 08:30] cholecalciferol (vitamin D3) 50 mcg (2,000 unit) capsule 4,000 unit PO DAILY 01/22/16 [History Last Taken 01/22/16 08:00] methimazole 10 mg tablet 5 mg PO BID THYROID 01/22/16 [History Last Taken 01/07/19] rivaroxaban 20 mg tablet 20 mg PO DAILY DVT HX 01/22/16 [History Last Taken 12/30/18] Biotin 10,000 mcg PO DAILY SUPPLEMENT 01/03/17 [History Last Taken Unknown] [place] 6 tab PO DAILY 12/31/18 [History Last Taken Unknown] azithromycin 250 mg tablet (Zithromax Z-Rashad) See Rx Instructions PO .COMPLEX #12 tabs 02/22/23 [Rx Last Taken Unknown] doxycycline hyclate 100 mg capsule 100 mg PO BID 10 days #20 caps 02/22/23 [Rx Last Taken Unknown] fluticasone fur. 100 mcg-umeclid 62.5 mcg-vilant 25 mcg inhalat.powder (Trelegy Ellipta) 1 inh inhalation DAILY #60 ea 02/22/23 [Rx Last Taken Unknown] oxycodone-acetaminophen 5 mg-325 mg tablet (Percocet) 1 tab PO Q6H PRN pain 3 days #12 tabs 02/22/23 [Rx Last Taken Unknown] albuterol sulfate 90 mcg/actuation aerosol inhaler 2 inh inhalation Q6H PRN sob 02/23/23 [History Last Taken Unknown] metoprolol succinate 25 mg tablet,extended release 24 hr 25 mg PO DAILY heart 02/23/23 [History Last Taken Unknown] Allergy/AdvReac Type Severity Reaction Status Date / Time No Known Allergies Allergy Verified 02/23/23 05:34 Family History Father Hyperlipemia Diabetes Grandmother Breast cancer Colon cancer Diabetes Hyperlipemia Surgical History Hx of cholecystectomy Previous back surgery Status post fine needle aspiration (~05/2020) [place] teeth extracted Social History Smoking Status: Current every day smoker tobacco type: cigarettes alcohol intake: current alcohol intake frequency: a few times a week Alcohol type: beer and wine ROS ROS ED Constitutional Constitutional ED: Reports other Details: Does not know if she has had fever or chills. Eyes Eyes: Denies blurry vision ENT ENT ED: Denies rhinorrhea Cardiovascular Cardiovascular: Reports as per HPI and chest pain Respiratory/Chest Respiratory/Chest: Reports cough and dyspnea Gastrointestinal Gastrointestinal: Denies nausea or vomiting Musculoskeletal Musculoskeletal: Denies myalgias Integumentary Denies rash Neurologic Neurologic: Denies headache(s), paresthesias or weakness Hematologic/Lymphatic Hematologic/Lymphatic: Reports easy bleeding and easy bruising Allergic/Immunologic Allergic/Immunologic ED: Denies urticaria EXAM Physical Exam Narrative Exam Narrative: CONSTITUTIONAL: Patient is nontoxic in appearance. The patient looks comfortable. Work of breathing looks normal. HEENT: No notable trauma. Mucous membranes moist. No sinus tenderness. No indication of pain with swallowing. EYES: No conjunctival injection. NECK:No JVD. No stridor. CARDIOVASCULAR: Patient's heart rate actually seems quite quick. When she checked and it was recorded at 70 per the monitor. But it sounds faster now. RESPIRATORY: Patient does not look markedly labored. Possibly some increased work. She does state it hurts on the right with taking deep breaths. But I am not hearing any wheezing whatsoever. I am hearing pretty good air motion. Her saturations are little bit on the lower side at 92% on room air just sitting in the bed. GASTROINTESTINAL: Not distended. Bowel sounds are normal. No tenderness. No guarding. No rebound. No palpable mass. No bruit is heard. GENITOURINARY: No tenderness over the bladder. No CVA tenderness. MUSCULOSKELETAL: Atraumatic. No peripheral edema. No cord. No tenderness along the deep venous system. NEUROLOGICAL: Patient is alert and appropriate. No focal deficit noted. SKIN: No noted rashes. No diaphoresis. PSYCHIATRIC: Patient is calm. She does have a slightly flat affect likely due to the discomfort. Const Vital Signs: 02/23/23 05:31 02/23/23 05:35 02/23/23 06:18 Temperature 97.5 F L Temperature Source Temporal Pulse Rate 68 Respiratory Rate 20 H Respiratory Effort Normal Respiratory Pattern Normal Blood Pressure 122/83 H Blood Pressure Mean 96 Pulse Ox 92 Oxygen Delivery Method Room Air Room Air Oxygen Flow Rate (L/min) 02/23/23 06:41 02/23/23 06:50 02/23/23 07:06 Temperature 96.4 F L Temperature Source Temporal Pulse Rate 160 H 161 H 165 H Respiratory Rate 16 20 H 18 Respiratory Effort Respiratory Pattern Blood Pressure 92/78 92/78 88/71 L Blood Pressure Mean 82 82 76 Pulse Ox 88 93 93 Oxygen Delivery Method Nasal Cannula Nasal Cannula Oxygen Flow Rate (L/min) 2 2 02/23/23 07:00 02/23/23 07:10 Temperature 98 F Temperature Source Temporal Pulse Rate 158 H 150 H Respiratory Rate 20 H 20 H Respiratory Effort Respiratory Pattern Blood Pressure 88/71 L 88/71 L Blood Pressure Mean 76 76 Pulse Ox 94 94 Oxygen Delivery Method Nasal Cannula Nasal Cannula Oxygen Flow Rate (L/min) MDM MDM MDM Narrative Medical decision making narrative: Patient was given 10 of diltiazem for her A-fib with a rate at 180 almost 190. She has slowed down to anywhere between 1 40-1 65 showing good improvement. I will start her on a diltiazem drip. We will watch her pressure closely. But I think she will actually do better with a lower rate. Patient CBC shows even higher white count at 24.6. Hemoglobin platelets are normal. Electrolytes showed minimally low sodium. Creatinine was just minimally up but is above levels the other day. She is given IV fluids. Troponin was normal at 7 BNP was Lactic acid was rated at 3.0. My independent interpretation of the patient's chest x-ray showed mild cardiomegaly and may be a small left effusion. But no significant indications of CHF. Does report a history of atrial fibrillation. I have an EKG from 2016 with it. But she states she has not been in atrial fibrillation for a long time. She now tells me that she is on metoprolol for this although that is not on her med list that we had gotten prior. We have given her diltiazem here which did slow her a bit. But her blood pressure dropped. But she is tolerating it amazingly well. I went to see her again and she is awake alert. She actually states she feels better. With her recent small PE, pneumonia, white count, lactate, tachycardia she will need to come in the hospital. Even though she is on antibiotics, I will send blood cultures. We will give her IV antibiotics here. Maykel the case with the hospitalist. We will give the patient metoprolol. She would prefer to take her home dose which is 25 mg. I am not quite sure the reason they do not want COVID test. I did talk to them about doing a respiratory panel with other viruses and they seem okay with this. She is starting to get some fluids. Her blood pressure is now 100/79. It is responding well to fluids. She states she feels better likely because she is on oxygen. She does seem like she looks better despite the heart rate. Lab Data Attestation: I reviewed the patient's lab results. Labs: Laboratory Results - last 24 hr 02/23/23 06:15 WBC 24.6 H RBC 4.93 Hgb 14.4 Hct 44.9 MCV 91.1 MCH 29.2 MCHC 32.1 RDW Std Deviation 50.9 H RDW Coeff of Andres 15.4 H Plt Count 231 MPV 9.0 Immature Gran % (Auto) 1.000 H Neut % (Auto) 82.3 H Lymph % (Auto) 6.9 L [place] % (Auto) 9.6 Eos % (Auto) 0.0 Baso % (Auto) 0.2 Absolute Neuts (auto) 20.2 H Absolute Lymphs (auto) 1.70 Nucleated RBC % 0 Diff Path Review Reviewed Sodium 133 L Potassium 4.7 Chloride 102 Carbon Dioxide 23.0 Anion Gap 8 BUN 15 Creatinine 1.03 H Estim Creat Clear Calc 69.88 Est GFR (MDRD) Af Amer 73 Est GFR (MDRD) Non-Af 60 BUN/Creatinine Ratio 14.6 Glucose 364 H Lactic Acid 3.0 H* Calcium 9.4 Troponin I High Sens 7 B-Natriuretic Peptide 108.2 H Radiography Diagnostic Testing: Clinical Impression(s) from Imaging Studies Chest X-Ray 02/23/23 06:55 IMPRESSION: Bilateral increased basilar multifocal linear atelectasis. Borderline cardiomegaly without florid edema Electronically Signed: Murray Harvey MD at 7:41 EDT , EKG Initial EKG: Comments: My independent interpretation of the patient's EKG shows atrial fibrillation with a high rate at 180. No ventricular ectopy is noted. QRS duration and QTc are normal. Management Discussion w/another healthcare provider: Hospitalist Critical Care Time Critical Care Time: Yes Critical care time (excluding procedures): 30-74 minutes, Discussing w/Patient &/or Family/Computed Tomography Technician, Discussing w/Consultants, Arranging Admission or Transfer, Performing Direct Patient Care at Bedside and - (48 minutes. Repeat evaluations, altering therapy, adjusting meds and fluids for hypotension, arra nging admission) Discharge Plan Dx/Rx/DC Orders Clinical Impression: Leukocytosis, Pulmonary emboli, Atrial fibrillation with RVR, Hypotension Disposition Disposition: Acute Care Hospital [facility] Discharge Date/Time: 02/23/23 12:23
--- NOTE | 2023-02-23 06:19 | ED.RN ---
THIS RN ATTEMPTED TO SWAB PT PER PHYSICIAN ORDER. PT SAYS NO SWABS!!! NO COVID, NO FLU, NO SWABS!!!!!!!!!. THIS RN REPORTS THAT TO DR. LEE
[2023-02-23 06:21] LABS: Absolute Neutrophil Count 20.2 X10^3/uL (2.0-7.7); Basophil# 0.06 X10^3/uL; Basophil% 0.2 % (0-1); Eosinophil# 0.01 X10^3/uL; Hematocrit 44.9 % (37-47); Hemoglobin 14.4 g/dL (12.0-15.0); Lymphocyte % 6.9 % (19-41); Mean Corp Hgb Conc 32.1 g/dL (32-36); Mean Corpuscular Hgb 29.2 pg (27.0-32.0); Mean Corpuscular Volume 91.1 fL (81-99); Monocyte# 2.36 X10^3/uL; Monocyte% 9.6 % (0-10); NRBC Flagged by Analyzer 0 % (0-5); Neutrophil # 20.21 X10^3/uL (2.7-7.7); Neutrophil % 82.3 % (47-70); POSITIVE DIFFERENTIAL YES; Platelet Count 231 K/mm3 (150-450); RBC Distribution Width CV 15.4 % (11.6-14.6); RBC Distribution Width SD 50.9 fl (35.1-43.9); Red Blood Count 4.93 M/mm3 (4.2-5.4); White Blood Count 24.6 K/mm3 (4.4-11.0)
[2023-02-23 06:22] LABS: Differential Indicated SCAN CRITERIA MET
[2023-02-23] MEDS: Ondansetron ODT 4 MG Tablet PO (06:23)
[2023-02-23] MEDS: Morphine 4 MG/ML Syringe IV (06:24)
[2023-02-23] MEDS: dilTIAZem 25 MG/5 ML Vial 10 MG IV BOLUS (06:24)
[2023-02-23 06:39] LABS: Anion Gap 8 (5-15); BUN 15 mg/dL (7-18); BUN/Creat Ratio 14.6 RATIO (10-20); Calcium,Total 9.4 mg/dL (8.5-10.1); Chloride 102 mmol/L (98-107); Creatinine, Serum 1.03 mg/dL (0.55-1.02); EST Glomerular Filtration Rate 60 mL/min (>60); Est Glom Filt Rate - Afr Amer 73 mL/min (>60); Estimated Creatinine Clearance 69.88 ml/min; Glucose 364 mg/dL (74-106); Potassium 4.7 mmol/L (3.5-5.1); Sodium Level 133 mmol/L (136-145); Troponin-I HS 7 pg/mL (3.0-54.0)
[2023-02-23] MEDS: Diltiazem 125 MG in Dextrose 5%-Water (100mL Bag) 100 ML CONT INF (06:41)
--- NOTE | 2023-02-23 06:55 | RAD_ITS ---
INDICATION: SOB EXAMINATION/TECHNIQUE: X-RAY - XR Chest 1 View COMPARISON: 22 February 2023. FINDINGS: LINES/DEVICES: None. LUNGS: No consolidation, edema or effusion. Linear atelectasis in the bilateral lower lungs. No pneumothorax. MEDIASTINUM AND CARDIOVASCULAR STRUCTURES: Borderline cardiomegaly, accentuated by projection. BONES AND SOFT TISSUES: Unremarkable. RAD/Chest 1 View (Portable) IMPRESSION: Bilateral increased basilar multifocal linear atelectasis. Borderline cardiomegaly without florid edema Electronically Signed: Murray Harvey MD at 7:41 EDT ,
[2023-02-23] MEDS: 0.9% Normal Saline (1000mL) 1,000 ML 999 ML IV (07:20)
[2023-02-23] MEDS: 0.9% Normal Saline (500mL Bag) 500 ML 999 ML IV (07:20)
--- NOTE | 2023-02-23 07:33 | ECHOD_ITS ---
Version 2 Reason For Study: a. fib/flutter Procedure This was a 2D Doppler, Color Flow transthoracic echocardiogram. Exam performed portable in patient room. Left Ventricle Normal LV size. Left ventricular systolic function is normal. The estimated ejection fraction is 55 %. No regional wall motion abnormalities noted. Right Ventricle Normal RV size. Normal systolic function. Atria Normal left atrium. Normal right atrium. Tricuspid Valve Normal tricuspid valve. Mild tricuspid valve insufficiency. Pulmonary artery systolic pressure is 26 mmHg. Pulmonic Valve Normal pulmonic valve. Great Vessels Normal aortic root. Pericardium/Pleural There are no echocardiographic indications of cardiac tamponade. Mild To moderate pericardial effusion. MMode/2D Measurements & Calculations LVIDd: 4.1 cm IVSd: 0.97 cm Ao root diam: 3.0 cm LVIDs: 3.1 cm LVPWd: 1.1 cm RVDd: 3.0 cm FS: 23.7 % LAV(MOD-bp): 57.9 ml LA dimension(2D): 3.8 cm LA A4 area: 18.2 cm2 LAV(MOD-bp) Indexed: 27.4 ml/m2 LAV(MOD-sp2): 73.1 ml LAV(MOD-sp4): 44.9 ml RA A4 area: 13.7 cm2 TAPSE: 1.6 cm Doppler Measurements & Calculations MV E max raya: 62.9 cm/sec Ao V2 max: 101.8 cm/sec LV V1 max: 63.3 cm/sec Ao max P.2 mmHg LV V1 max P.6 mmHg PA V2 max: 54.0 cm/sec TR max raya: 235.7 cm/sec TR max P.2 mmHg ECHO/Echo Complete Interpretation Summary Normal LV size. Left ventricular systolic function is normal. The estimated ejection fraction is 55 %. Pulmonary artery systolic pressure is 26 mmHg. There are no echocardiographic indications of cardiac tamponade. Mild To moderate pericardial effusion Ordering Physician: Franklin Bright Performed By: Kim Arroyo RDCS
[2023-02-23] MEDS: Piperacil/Tazobactam 4.5 GM in 0.9% Normal Saline (100mL MB+) 100 ML IV (07:42)
[2023-02-23 08:26] LABS: BNP,B-Type NATRIURETIC PEPTIDE 108.2 pg/mL (0-100)
[2023-02-23] MEDS: Metoprolol Tartrate 25 MG Tablet PO ×2 (08:47→20:55)
[2023-02-23 10:19] LABS: Reflex Lactate? Y
[2023-02-23 10:46] LABS: Pathologist Review Reviewed
[2023-02-23] MEDS: Metoprolol Tartrate 25 MG Tablet 50 MG PO (11:24)
--- NOTE | 2023-02-23 11:26 | ED.RN ---
ADAMANTLY REFUSES RESPIRATORY PANEL SWAB, THOSE SWABS ALL COME FROM [place] AND ARE DIPPED IN COVID. PT AND SPOUSE CONTINUE TO REFUSE DESPITE MUCH EDUCATION.
[2023-02-23] MEDS: 0.9% Normal Saline (1000mL) 1,000 ML 100 ML IV ×2 (13:32→22:45)
[2023-02-23] MEDS: Ondansetron 4 MG/2 ML Vial IV (13:32)
--- NOTE | 2023-02-23 13:34 | EKG12_ITS ---
Test Reason : REPEAT Blood Pressure : / mmHG Vent. Rate : 083 BPM Atrial Rate : 000 BPM P-R Int : 000 ms QRS Dur : 080 ms QT Int : 350 ms P-R-T Axes : 000 057 033 degrees QTc Int : 411 ms Atrial fibrillation Abnormal ECG When compared with ECG of 23-FEB-2023 13:34, MANUAL COMPARISON REQUIRED, DATA IS UNCONFIRMED Confirmed by KEN PERDOMO, JAMES ([id number]), film or videotape editor NIKITA MCKINNON ([id number]) on 03/16/2023 11:36:52 AM Referred By: Confirmed By:JAMES ROGERS MD
--- NOTE | 2023-02-23 14:01 | NURSING ---
noted ekg called md and sent to md fluid bolus given due to bp low did stop cardizem having echo now states feels sob but sats are fine on 2l bp improving since cardizem stopped and fluid bolus started
[2023-02-23] MEDS: Ipratropium/Albuterol Sulfate 3 ML AMPUL.NEB INHALATION ×2 (14:02→20:11)
[2023-02-23] MEDS: Albuterol 2.5 MG/3 ML VIAL.NEB. INHALATION (14:03)
[2023-02-23] MEDS: 0.9% Normal Saline (250mL Bag) 500 ML 999 ML IV (14:05)
[2023-02-23 15:03] LABS: Troponin-I HS 10 pg/mL (3.0-54.0)
--- NOTE | 2023-02-23 16:05 | ECHOL_ITS ---
Reason For Study: ASSESS EFFUSION Procedure This was a limited 2D transthoracic echocardiogram. Exam performed portable in patient room. Left Ventricle Normal LV size. Left ventricular systolic function is normal. No regional wall motion abnormalities noted. Right Ventricle Normal RV size. Normal systolic function. Great Vessels Normal aortic root. Pericardium/Pleural Moderate pericardial effusion. There are no echocardiographic indications of cardiac tamponade. Not significantly different compared to previous echo. MMode/2D Measurements & Calculations LVIDd: 4.1 cm IVSd: 0.79 cm LAV(MOD-sp4): 53.0 ml LVIDs: 2.8 cm LVPWd: 0.82 cm FS: 32.6 % LA A4 area: 20.5 cm2 RA A4 area: 17.9 cm2 ECHO/Echo, Limited Study Interpretation Summary Normal LV size. Left ventricular systolic function is normal. Moderate pericardial effusion. There are no echocardiographic indications of cardiac tamponade. Ordering Physician: Franklin Bright Performed By: Kim Arroyo RDCS
[2023-02-23] MEDS: Ibuprofen 600 MG Tablet PO (16:39)
[2023-02-23] MEDS: Colchicine 0.6 MG TABLET PO (16:41)
--- NOTE | 2023-02-23 17:59 | HP.PCM.HOS_ITS ---
HPI - General General Date of Admission: 02/23/23 Date of Service: 02/23/23 Chief Complaint: Chest pain, increased shortness of breath, malaise HPI Narrative KRISTI COOK, is a 52 F who presents to the emergency room at [facility] with complaints of shortness of breath, chest pressure, and malaise. It was treated as an outpatient by her PCP with prednisone and she states that she recently finished the prednisone yesterday. She had been seen in the emergency room on 02/22/2023 for complaints of chest discomfort and shortness of breath, work-up included a CTA which revealed a small peripheral pulmonary embolism, the emergency room physician discussed this with oncology who stated because the PE was small that the patient was to continue her Xarelto which she had been on for years. Patient was also started on oral antibiotics. Work-up in the emergency room today included a chest x-ray which showed mild cardiomegaly, [employer] showed atrial fib with a rate of 180 290, she was given IV Cardizem and placed on a Cardizem drip. Patient's white blood cell count was elevated at 24.6, troponin was normal, lactic acid was elevated at 3. Chest x-ray showed mild cardiomegaly but no significant indication of CHF. Patient was admitted to PCU for atrial fib with RVR, she was given IV antibiotics in the emergency room but I am not convinced that she has an actual pneumonia. In reviewing the patient's EKGs there was noted to be ST T wave elevation in several of the leads, I talked with cardiology about this and it appears that the patient has pericarditis, echocardiogram was obtained today which did show a moderate pericardial effusion. Patient will be seen in consultation by cardiology. I have made the decision to stop her IV antibiotics. Patient will be taken off her Xarelto due to the possibility of a bleed with pericarditis, she will be placed on nonsteroidal anti-inflammatory meds (ibupr ofen) and she will be placed on colchicine. [facility] Medical History Anemia Atrial fibrillation Clotting disorder Graves disease History of blood transfusion History of DVT (deep vein thrombosis) history of uterine surgery Low protein C activity level Multiple thyroid nodules Seasonal allergies Thyroid disease Home Medications ascorbic acid (vitamin C) 500 mg tablet 500 mg PO DAILY@0800 SUPPLEMENT 01/22/16 [History Last Taken 01/22/16 08:30] cholecalciferol (vitamin D3) 50 mcg (2,000 unit) capsule 4,000 unit PO DAILY 01/22/16 [History Last Taken 01/22/16 08:00] methimazole 10 mg tablet 5 mg PO BID THYROID 01/22/16 [History Last Taken 01/07/19] rivaroxaban 20 mg tablet 20 mg PO DAILY DVT HX 01/22/16 [History Last Taken 12/30/18] Biotin 10,000 mcg PO DAILY SUPPLEMENT 01/03/17 [History Last Taken Unknown] [place] 6 tab PO DAILY 12/31/18 [History Last Taken Unknown] azithromycin 250 mg tablet (Zithromax Z-Rashad) See Rx Instructions PO .COMPLEX #12 tabs 02/22/23 [Rx Last Taken Unknown] doxycycline hyclate 100 mg capsule 100 mg PO BID 10 days #20 caps 02/22/23 [Rx Last Taken Unknown] fluticasone fur. 100 mcg-umeclid 62.5 mcg-vilant 25 mcg inhalat.powder (Trelegy Ellipta) 1 inh inhalation DAILY #60 ea 02/22/23 [Rx Last Taken Unknown] oxycodone-acetaminophen 5 mg-325 mg tablet (Percocet) 1 tab PO Q6H PRN pain 3 days #12 tabs 02/22/23 [Rx Last Taken Unknown] albuterol sulfate 90 mcg/actuation aerosol inhaler 2 inh inhalation Q6H PRN sob 02/23/23 [History Last Taken Unknown] metoprolol succinate 25 mg tablet,extended release 24 hr 25 mg PO DAILY heart 02/23/23 [History Last Taken Unknown] Allergy/AdvReac Type Severity Reaction Status Date / Time No Known Allergies Allergy Verified 02/23/23 05:34 Family History Father Hyperlipemia Diabetes Grandmother Breast cancer Colon cancer Diabetes Hyperlipemia Surgical History Hx of cholecystectomy Previous back surgery Status post fine needle aspiration (~05/2020) [place] teeth extracted Social History (Updated 02/23/23 @ 12:51 by Lorene Elizabeth) Smoking Status: Current every day smoker tobacco type: cigarettes alcohol intake: current alcohol intake frequency: a few times a week Alcohol type: beer and wine ROS Constitutional Constitutional: Reports fatigue and malaise; Denies anorexia, change in weight, chills, fever(s), night sweats or weakness Eyes Eyes: Denies blurry vision, change in vision, discharge from eye(s) or eye pain Cardiovascular Cardiovascular: Reports chest pain; Denies claudication, edema or palpitations Respiratory/Chest Respiratory/Chest: Reports shortness of breath with exertion; Denies cough, hemoptysis, productive cough or shortness of breath at rest Gastrointestinal Gastrointestinal: Denies abdominal pain, constipation, diarrhea, hematemesis, hematochezia, melena, nausea or vomiting Genitourinary Genitourinary: Denies dysuria, hematuria, urinary frequency, urinary hesitancy, urinary incontinence or urinary urgency Musculoskeletal Musculoskeletal: Denies back pain, joint pain, joint stiffness, joint swelling, myalgias or neck pain Neurologic Neurologic: Denies abnormal gait, abnormal speech, confusion, disequilibrium, dizziness, focal weakness, headache(s), loss of vision, numbness, other visual disturbances, paresthesias, syncope or tingling Psychiatric Psychiatric: Denies anxiety, cognitive impairment, depression, irritability, mood swings or suicidal ideation Endocrine Endocrinology: Denies change in body appearance, cold intolerance, excessive sweating, heat intolerance, polydipsia or polyuria Hematologic/Lymphatic Hematologic/Lymphatic: Denies none, anemia, easy bleeding, easy bruising or lymphadenopathy Allergic/Immunologic Allergic/Immunologic: Denies rhinitis, urticaria, eczemia or asthma Vital Signs Vital Signs Vital Signs: 02/23/23 05:31 02/23/23 05:35 02/23/23 06:18 Temperature 97.5 F L Temperature Source Temporal Pulse Rate 68 Respiratory Rate 20 H Respiratory Effort Normal Respiratory Depth Respiratory Pattern Normal Blood Pressure 122/83 H Blood Pressure Mean 96 Blood Pressure Source Blood Pressure Position Blood Pressure Location Pulse Ox 92 Oxygen Delivery Method Room Air Room Air Oxygen Flow Rate (L/min) 02/23/23 06:41 02/23/23 06:50 02/23/23 07:06 Temperature 96.4 F L Temperature Source Temporal Pulse Rate 160 H 161 H 165 H Respiratory Rate 16 20 H 18 Respiratory Effort Respiratory Depth Respiratory Pattern Blood Pressure 92/78 92/78 88/71 L Blood Pressure Mean 82 82 76 Blood Pressure Source Blood Pressure Position Blood Pressure Location Pulse Ox 88 93 93 Oxygen Delivery Method Nasal Cannula Nasal Cannula Oxygen Flow Rate (L/min) 2 2 02/23/23 07:00 02/23/23 07:10 02/23/23 07:39 Temperature 98 F 97.9 F Temperature Source Temporal Temporal Pulse Rate 158 H 150 H 164 H Respiratory Rate 20 H 20 H 16 Respiratory Effort Respiratory Depth Respiratory Pattern Blood Pressure 88/71 L 88/71 L 100/79 Blood Pressure Mean 76 76 86 Blood Pressure Source Blood Pressure Position Blood Pressure Location Pulse Ox 94 94 95 Oxygen Delivery Method Nasal Cannula Nasal Cannula Nasal Cannula Oxygen Flow Rate (L/min) 02/23/23 07:43 02/23/23 08:00 02/23/23 08:31 Temperature 97.9 F 98.9 F Temperature Source Temporal Temporal Pulse Rate 142 H 155 H 128 H Respiratory Rate 18 18 18 Respiratory Effort Respiratory Depth Respiratory Pattern Blood Pressure 100/79 95/65 101/77 Blood Pressure Mean 86 75 85 Blood Pressure Source Blood Pressure Position Blood Pressure Location Pulse Ox 95 95 96 Oxygen Delivery Method Nasal Cannula Nasal Cannula Nasal Cannula Oxygen Flow Rate (L/min) 02/23/23 08:43 02/23/23 09:14 02/23/23 10:00 Temperature 98.9 F Temperature Source Temporal Pulse Rate 129 H 125 H 145 H Respiratory Rate 16 18 18 Respiratory Effort Respiratory Depth Respiratory Pattern Blood Pressure 101/77 101/77 96/80 Blood Pressure Mean 85 85 85 Blood Pressure Source Blood Pressure Position Blood Pressure Location Pulse Ox 96 95 95 Oxygen Delivery Method Nasal Cannula Nasal Cannula Nasal Cannula Oxygen Flow Rate (L/min) 02/23/23 10:15 02/23/23 13:06 02/23/23 13:33 Temperature 98 F 97.8 F Temperature Source Temporal Oral Pulse Rate 131 H 100 76 Respiratory Rate 16 19 H 20 H Respiratory Effort Respiratory Depth Respiratory Pattern Blood Pressure 103/80 89/65 L 86/70 L Blood Pressure Mean 87 73 75 Blood Pressure Source Monitor Monitor Blood Pressure Position Semi-Fowlers Semi-Fowlers Blood Pressure Location Right Arm Right Arm Pulse Ox 95 95 99 Oxygen Delivery Method Nasal Cannula Nasal Cannula Nasal Cannula Oxygen Flow Rate (L/min) 2 2 02/23/23 13:45 02/23/23 13:50 02/23/23 13:44 Temperature Temperature Source Pulse Rate 77 91 86 Respiratory Rate 17 20 H 18 Respiratory Effort Respiratory Depth Respiratory Pattern Normal Blood Pressure 77/63 L 82/71 L Blood Pressure Mean 67 74 Blood Pressure Source Blood Pressure Position Blood Pressure Location Pulse Ox 97 97 Oxygen Delivery Method Nasal Cannula Nasal Cannula Oxygen Flow Rate (L/min) 2 2 02/23/23 14:00 Temperature Temperature Source Pulse Rate Respiratory Rate Respiratory Effort Normal Non-Labored Respiratory Depth Normal Respiratory Pattern Normal Blood Pressure Blood Pressure Mean Blood Pressure Source Blood Pressure Position Blood Pressure Location Pulse Ox Oxygen Delivery Method Nasal Cannula Oxygen Flow Rate (L/min) 2 Weight Weight: 94.6 kg Body Mass Index (BMI) 29.9 Physical Exam Const alert, oriented x3, no apparent distress and average body habitus General Appearance: cooperative, well kempt and well developed Orientation / Consciousness: awake, oriented to person, oriented to place and oriented to time HEENT normocephalic, head/scalp atraumatic, hearing grossly normal bilaterally and moist oral mucous membranes Eyes PERRL, EOMs intact bilaterally and conjunctivae normal Neck supple, no JVD, thyroid normal and no carotid bruits General: trachea midline Resp normal respiratory effort, no retractions, no use of accessory muscles and clear to auscultation bilaterally Auscultation: Negative for rales, rhonchi or wheezes Cardio S1 normal heart sound, S2 normal heart sound, no murmurs, no rub and no gallops Cardio Narrative: Heart rate and rhythm is irregular GI normal to inspection, nondistended, normoactive bowel sounds, soft to palpation, non-tender and non-distended Extremity no clubbing, cyanosis or edema Skin no rashes or lesions noted General Skin Exam: no breakdown Neuro oriented x3, CN's II-XII intact bilaterally, moves all extremities, no focal motor deficits and no sensory deficits noted Sensorium / Orientation: awake, alert, oriented to person, oriented to place and oriented to time Speech: speech normal Psych affect normal Results Lab / Micro Data 02/23/23 06:15 02/23/23 06:15 Labs: Laboratory Results - last 24 hr 02/23/23 06:15: WBC 24.6 H, RBC 4.93, Hgb 14.4, Hct 44.9, MCV 91.1, MCH 29.2, MCHC 32.1, RDW Std Deviation 50.9 H, RDW Coeff of Andres 15.4 H, Plt Count 231, MPV 9.0, Immature Gran % (Auto) 1.000 H, Neut % (Auto) 82.3 H, Lymph % (Auto) 6.9 L, [place] % (Auto) 9.6, Eos % (Auto) 0.0, Baso % (Auto) 0.2, Absolute Neuts (auto) 20.2 H, Absolute Lymphs (auto) 1.70, Nucleated RBC % 0, Diff Path Review Reviewed, Sodium 133 L, Potassium 4.7, Chloride 102, Carbon Dioxide 23.0, Anion Gap 8, BUN 15, Creatinine 1.03 H, Estim Creat Clear Calc 69.88, Est GFR (MDRD) Af Amer 73, Est GFR (MDRD) Non-Af 60, BUN/Creatinine Ratio 14.6, Glucose 364 H, Lactic Acid 3.0 H*, Calcium 9.4, Troponin I High Sens 7, B-Natriuretic Peptide 108.2 H 02/23/23 10:45: Lactic Acid 2.0 02/23/23 14:27: Troponin I High Sens 10 Radiology Impression Chest X-Ray 02/23/23 06:55 IMPRESSION: Bilateral increased basilar multifocal linear atelectasis. Borderline cardiomegaly without florid edema Electronically Signed: Murray Harvey MD at 7:41 EDT , Echocardiogram 02/23/23 07:33 Interpretation Summary Normal LV size. Left ventricular systolic function is normal. The estimated ejection fraction is 55 %. Pulmonary artery systolic pressure is 26 mmHg. There are no echocardiographic indications of cardiac tamponade. Mild To moderate pericardial effusion Ordering Physician: Franklin Bright Performed By: Kim Arroyo RDCS Assessment & Plan Assessment/Plan (1) Atrial fibrillation with RVR: PLAN: Plan 1. Atrial fibrillation with RVR-patient was admitted to PCU as stepdown, she will be maintained on a Cardizem drip and she was given oral beta-blockers, if possible her Cardizem drip will be stopped #2 pericarditis-patient will be seen by cardiology, she will be placed on nonsteroidal anti-inflammatory meds, colchicine, and her echocardiogram will be repeated tomorrow. #3 protein C deficiency-complicates care, medical course, recovery, and prognosi s #4 leukocytosis-probably secondary to recent corticosteroid administration, CBC will be repeated tomorrow #5 pulmonary embolism-this is a small subsegmental pulmonary embolism, for the time being she will have to remain off Xarelto #6 Graves' disease-patient is on methimazole Total clinical time spent by myself addressing the patient's medical issues, reviewing all of her data, and collaborating with patient's care team: 75 minutes Charges/Coding Visit Charges Inpatient E&M: 51770 Init Hosp L3
--- NOTE | 2023-02-23 18:43 | CON.PCM.CA_ITS ---
Assessment & Plan Assessment/Plan (1) Atrial fibrillation with RVR: PLAN: Patient has a history of atrial fibrillation with previous Graves' disease. She did present with rapid ventricular response rate. She was initially put on diltiazem which has been discontinued and her metoprolol has been resumed. At this time with a chads Vascor of 1 I would recommend that we hold off on the anticoagulation especially since the patient has a pericardial effusion. We will evaluate this and make further decisions. (2) Pericarditis: QUALIFIERS: Pericarditis type: idiopathic PLAN: Patient presents with fatigue shortness of breath and is noted to have ST elevation in all the EKG leads except for aVR consistent with acute pericarditis. My recommendations will be as follows: * Colchicine 0.6 mg twice daily * Nonsteroidal anti-inflammatory agent * DC anticoagulation for now * Serial echocardiograms * * Thank you for allowing me to participate in the care of your patient. Please don't hesitate to call if any issues arise. HPI Consult Data Date of Consult: 02/23/23 HPI Narrative HPI Narrative: KRISTI COOK, is a 52 F who presents the emergency room with complaints of not feeling good and short of breath. She has a history of a protein C deficiency with a previous DVT having failed Coumadin and put on Xarelto. She presented to the emergency room complaining of the above with an EKG demonstrating atrial fibrillation with rapid ventricular response rate. She underwent a CT scan which demonstrated a possible small peripheral pulmonary embolism. She was admitted to the telemetry care unit. Cardiac enzymes were negative. She continued not to feel well an echocardiogram was performed which demonstrated evidence of a small to medium sized pericardial effusion. Repeat EKG demonstrated ST elevation in all leads except for lead III and aVR. Cardiology was called for further evaluation and management. [facility] Medical History Anemia Atrial fibrillation Clotting disorder Graves disease History of blood transfusion History of DVT (deep vein thrombosis) history of uterine surgery Low protein C activity level Multiple thyroid nodules Seasonal allergies Thyroid disease Home Medications ascorbic acid (vitamin C) 500 mg tablet 500 mg PO DAILY@0800 SUPPLEMENT 01/22/16 [History Last Taken 01/22/16 08:30] cholecalciferol (vitamin D3) 50 mcg (2,000 unit) capsule 4,000 unit PO DAILY 01/22/16 [History Last Taken 01/22/16 08:00] methimazole 10 mg tablet 5 mg PO BID THYROID 01/22/16 [History Last Taken 01/07/19] rivaroxaban 20 mg tablet 20 mg PO DAILY DVT HX 01/22/16 [History Last Taken 12/30/18] Biotin 10,000 mcg PO DAILY SUPPLEMENT 01/03/17 [History Last Taken Unknown] [place] 6 tab PO DAILY 12/31/18 [History Last Taken Unknown] azithromycin 250 mg tablet (Zithromax Z-Rashad) See Rx Instructions PO .COMPLEX #12 tabs 02/22/23 [Rx Last Taken Unknown] doxycycline hyclate 100 mg capsule 100 mg PO BID 10 days #20 caps 02/22/23 [Rx Last Taken Unknown] fluticasone fur. 100 mcg-umeclid 62.5 mcg-vilant 25 mcg inhalat.powder (Trelegy Ellipta) 1 inh inhalation DAILY #60 ea 02/22/23 [Rx Last Taken Unknown] oxycodone-acetaminophen 5 mg-325 mg tablet (Percocet) 1 tab PO Q6H PRN pain 3 days #12 tabs 02/22/23 [Rx Last Taken Unknown] albuterol sulfate 90 mcg/actuation aerosol inhaler 2 inh inhalation Q6H PRN sob 02/23/23 [History Last Taken Unknown] metoprolol succinate 25 mg tablet,extended release 24 hr 25 mg PO DAILY heart 02/23/23 [History Last Taken Unknown] Allergy/AdvReac Type Severity Reaction Status Date / Time No Known Allergies Allergy Verified 02/23/23 05:34 Family History Father Hyperlipemia Diabetes Grandmother Breast cancer Colon cancer Diabetes Hyperlipemia Surgical History Hx of cholecystectomy Previous back surgery Status post fine needle aspiration (~05/2020) [place] teeth extracted Social History Smoking Status: Current every day smoker tobacco type: cigarettes alcohol intake: current alcohol intake frequency: a few times a week Alcohol type: beer and wine ROS Constitutional Constitutional: Denies fever(s) or weight loss Eyes Eyes: Reports systems reviewed and no addt'l complaints, except as documented ENT HEENT: Reports systems reviewed and no addt'l complaints, except as documented Cardiovascular Cardiovascular: Reports dyspnea at rest, dyspnea on exertion and palpitations; Denies chest pain at rest, chest pain with activity, edema or paroxysmal nocturnal dyspnea Respiratory/Chest Respiratory/Chest: Denies dyspnea on exertion, productive cough, shortness of breath at rest or shortness of breath with exertion Gastrointestinal Gastrointestinal: Denies change in bowel habits, nausea, vomiting or weight changes Genitourinary Genitourinary: Denies difficulty urinating Musculoskeletal Musculoskeletal: Denies joint stiffness or muscle weakness Integumentary Integumentary: Denies lesions Neurologic Neurologic: Denies dizziness or syncope Psychiatric Psychiatric: Denies anxiety Endocrine Endocrinology: Denies excessive sweating or fatigue Hematologic/Lymphatic Hematologic/Lymphatic: Denies anemia Allergic/Immunologic Allergic/Immunologic: Denies seasonal rhinorrhea Physical Exam Const alert, oriented x3 and no apparent distress General Appearance: cooperative HEENT hearing grossly normal bilaterally Head and Scalp: atraumatic Eyes EOMs intact bilaterally Neck General: normal visual inspection Chest inspection of chest normal and palpation of chest normal Resp normal respiratory effort Auscultation: clear to auscultation bilaterally Cardio S1 normal heart sound and S2 normal heart sound Jugular Venous Distention: JVD Rhythm: abnormal rhythm irregularly irregular GI normal to inspection, nondistended, normoactive bowel sounds Extremity normal capillary refill and no pedal edema Peripheral Pulses: Yes pulses 2+ throughout and femoral pulses present Skin no rashes or lesions noted Neuro oriented x3 and CN's II-XII intact bilaterally Psych Appearance: grossly normal and appropriate Risk Stratification Risk Stratification Applicable: No Objective Data Vital Signs: Vital Signs Temp Pulse Resp BP Pulse Ox O2 Del Method O2 Flow Rate 98 F 103 H 14 94/82 H 99 Nasal Cannula 2 02/23/23 16:00 02/23/23 16:00 02/23/23 16:00 02/23/23 16:00 02/23/23 16:00 02/23/23 16:00 02/23/23 16:00 Oxygen Flow Rate (L/min) 2 Oxygen Delivery Method Nasal Cannula Weight: 208 lb 8.917 oz Body Mass Index (BMI) 29.9 Intake & Output: Intake and Output for Last 24 Hours 10/03/23 10/04/23 10/05/23 23:59 23:59 23:59 Intake Total 2182.75 / 2182.75 Balance 2182.75 / 2182.75 Lab / Micro Data 02/23/23 06:15 02/23/23 06:15 Labs: Laboratory Results - last 24 hr 02/23/23 06:15: WBC 24.6 H, RBC 4.93, Hgb 14.4, Hct 44.9, MCV 91.1, MCH 29.2, MCHC 32.1, RDW Std Deviation 50.9 H, RDW Coeff of Andres 15.4 H, Plt Count 231, MPV 9.0, Immature Gran % (Auto) 1.000 H, Neut % (Auto) 82.3 H, Lymph % (Auto) 6.9 L, [place] % (Auto) 9.6, Eos % (Auto) 0.0, Baso % (Auto) 0.2, Absolute Neuts (auto) 20.2 H, Absolute Lymphs (auto) 1.70, Nucleated RBC % 0, Diff Path Review Reviewed, Sodium 133 L, Potassium 4.7, Chloride 102, Carbon Dioxide 23.0, Anion Gap 8, BUN 15, Creatinine 1.03 H, Estim Creat Clear Calc 69.88, Est GFR (MDRD) Af Amer 73, Est GFR (MDRD) Non-Af 60, BUN/Creatinine Ratio 14.6, Glucose 364 H, Lactic Acid 3.0 H*, Calcium 9.4, Troponin I High Sens 7, B-Natriuretic Peptide 108.2 H 02/23/23 10:45: Lactic Acid 2.0 02/23/23 14:27: Troponin I High Sens 10 Cardiology Labs/Tests 02/23/23 06:15: WBC 24.6 H, RBC 4.93, Hgb 14.4, Hct 44.9, MCV 91.1, MCH 29.2, MCHC 32.1, Plt Count 231, MPV 9.0, Immature Gran % (Auto) 1.000 H, Neut % (Auto) 82.3 H, Lymph % (Auto) 6.9 L, [place] % (Auto) 9.6, Eos % (Auto) 0.0, Baso % (Auto) 0.2, Absolute Neuts (auto) 20.2 H, Nucleated RBC % 0, Sodium 133 L, Potassium 4.7, Chloride 102, Carbon Dioxide 23.0, Anion Gap 8, BUN 15, Creatinine 1.03 H, Est GFR (MDRD) Af Amer 73, Est GFR (MDRD) Non-Af 60, BUN/Creatinine Ratio 14.6, Glucose 364 H, Lactic Acid 3.0 H*, Calcium 9.4, B-Natriuretic Peptide 108.2 H 02/23/23 10:45: Lactic Acid 2.0 Rhythm: EKG: ECHO: Stress Test: Cardiac Cath: PCI: CT Surgery: Holter monitor: EPS: PPM: CXR: Chest CT Scan: Radiography Diagnostic Testing: Radiology Impression Chest X-Ray 02/23/23 06:55 IMPRESSION: Bilateral increased basilar multifocal linear atelectasis. Borderline cardiomegaly without florid edema Electronically Signed: Murray Harvey MD at 7:41 EDT , Echocardiogram 02/23/23 07:33 Interpretation Summary Normal LV size. Left ventricular systolic function is normal. The estimated ejection fraction is 55 %. Pulmonary artery systolic pressure is 26 mmHg. There are no echocardiographic indications of cardiac tamponade. Mild To moderate pericardial effusion Ordering Physician: Franklin Bright Performed By: Kim Arroyo, TOM
[2023-02-23] MEDS: methIMAzole 5 MG TABLET PO (20:02)
[2023-02-23 20:50] LABS: CRP, High Sensitivity Cardiac > 190.00 mg/L
--- NOTE | 2023-02-23 22:09 | NURSING ---
pt c/o feeling SOB after ambulating to restroom and back to bed. vss, pt denies needing O2 increase and states her breathing is improving and refuses BSC for further toileting needs. Nate CHRISTOPHER
[2023-02-24] VITALS (15 sets, daily range): BP systolic 94–116; BP diastolic 64–87; PULSE 81–142; RESP 14–20; TEMP 36.4–37; O2SAT 92–98
[2023-02-24] MEDS: Ibuprofen 600 MG Tablet PO ×4 (00:04→17:21)
[2023-02-24] MEDS: Ipratropium/Albuterol Sulfate 3 ML AMPUL.NEB INHALATION ×3 (00:44→20:25)
[2023-02-24 06:19] LABS: Absolute Neutrophil Count 11.4 X10^3/uL (2.0-7.7); Basophil# 0.03 X10^3/uL; Basophil% 0.2 % (0-1); Eosinophil# 0.15 X10^3/uL; Hematocrit 37.4 % (37-47); Hemoglobin 12.3 g/dL (12.0-15.0); Lymphocyte % 15.5 % (19-41); Mean Corp Hgb Conc 32.9 g/dL (32-36); Mean Corpuscular Hgb 29.5 pg (27.0-32.0); Mean Corpuscular Volume 89.7 fL (81-99); Mean Platelet Vol. 8.8 fl (6.2-12.0); Monocyte# 1.35 X10^3/uL; Monocyte% 8.7 % (0-10); NRBC Flagged by Analyzer 0 % (0-5); Neutrophil # 11.38 X10^3/uL (2.7-7.7); Neutrophil % 73.5 % (47-70); Platelet Count 176 K/mm3 (150-450); RBC Distribution Width CV 15.1 % (11.6-14.6); RBC Distribution Width SD 49.5 fl (35.1-43.9); Red Blood Count 4.17 M/mm3 (4.2-5.4); White Blood Count 15.5 K/mm3 (4.4-11.0)
--- NOTE | 2023-02-24 06:31 | PCM.HOSP.N ---
Hospitalist Note Patient with rate increase again, will give metoprolol 25 mg x 1 additional now.
[2023-02-24 07:16] LABS: Anion Gap 8 (5-15); BUN 24 mg/dL (7-18); BUN/Creat Ratio 31.6 RATIO (10-20); Calcium,Total 8.8 mg/dL (8.5-10.1); Chloride 104 mmol/L (98-107); Creatinine, Serum 0.76 mg/dL (0.55-1.02); EST Glomerular Filtration Rate 85 mL/min (>60); Est Glom Filt Rate - Afr Amer 103 mL/min (>60); Glucose 156 mg/dL (74-106); Potassium 3.7 mmol/L (3.5-5.1); Sodium Level 132 mmol/L (136-145)
--- NOTE | 2023-02-24 07:33 | EKG12_ITS ---
Test Reason : CP Blood Pressure : / mmHG Vent. Rate : 138 BPM Atrial Rate : 000 BPM P-R Int : 000 ms QRS Dur : 080 ms QT Int : 282 ms P-R-T Axes : 000 049 246 degrees QTc Int : 427 ms Atrial fibrillation with rapid ventricular response Low voltage QRS Nonspecific T wave abnormality Abnormal ECG Confirmed by JANEL PERDOMO, YUNG ([id number]), food editor MIRELLA DAVIES ([id number]) on 03/13/2023 2:37:44 PM Referred By: Confirmed By:AYANNA ISLAS MD
--- NOTE | 2023-02-24 07:49 | EKG12_ITS ---
Test Reason : AFIB Blood Pressure : / mmHG Vent. Rate : 134 BPM Atrial Rate : 000 BPM P-R Int : 000 ms QRS Dur : 086 ms QT Int : 280 ms P-R-T Axes : 000 060 004 degrees QTc Int : 418 ms Atrial fibrillation with rapid ventricular response Nonspecific T wave abnormality Abnormal ECG When compared with ECG of 23-FEB-2023 14:23, MANUAL COMPARISON REQUIRED, DATA IS UNCONFIRMED Confirmed by JANEL PERDOMO, YUNG ([id number]), commercial production editor KATHRYN VALVERDE ([id number]) on 04/03/2023 10:55:10 AM Referred By: KEN Confirmed By:AYANNA ISLAS MD
[2023-02-24] MEDS: 0.9% Normal Saline (1000mL) 1,000 ML 100 ML IV ×2 (08:53→19:49)
[2023-02-24] MEDS: Metoprolol Tartrate 25 MG Tablet PO ×3 (09:42→12:36)
[2023-02-24] MEDS: methIMAzole 5 MG TABLET PO ×2 (09:44→21:53)
[2023-02-24] MEDS: Colchicine 0.6 MG TABLET PO ×2 (09:44→21:53)
[2023-02-24] MEDS: Acetaminophen 500 MG Tablet PO (09:47)
[2023-02-24] MEDS: Digoxin 250 MCG/ML Ampul 500 MCG IV (10:40)
[2023-02-24] MEDS: Digoxin 250 MCG/ML Ampul IV (12:36)
[2023-02-24] MEDS: Amiodarone 150 MG in Dextrose 5%-Water (100mL Bag) 100 ML 600 MG IV BOLUS (14:27)
[2023-02-24] MEDS: 0.9% Saline Lock 10 ML Syringe IV (14:30)
--- NOTE | 2023-02-24 15:25 | CASEMGMT ---
RN?CM?DIGITAL STRATEGY SPECIALIST?CM?to room to meet with patient for initial transition planning/care coordination?assessment.?RN?CM?introduced self and role at [facility].? Pt voices understanding and consents to?assessment?at this time.? Pt sitting on edge of bed in no distress at this time, but states she is not feeling well.? @ bedside and the following information obtained from pt and . Care providers, pharmacy, and demographics verified/updated at this time. PCP: Dr Norwood in [place] @ the [facility] Specialists: Dr Bacon Preferred Pharmacy: [facility] Insurance: [employer] [facility] Prescription Benefit:? Yes Living Will/HPOA:?Pt does not currently have LW/HCPOA and declines info at this time.? Pt made aware that she can contact as an out-pt and make appt in the future if she decides she would like to talk with someone about this or would like to utilize [facility] social work for advanced directive completion.? LNOK: Mitul Living Arrangements: Lives w/ in one-story home w/one step to enter. Pt typically independent w/ADL's, but states d/t Graves's disease she has weakness at times and assists as needed. Transportation:? Denies transportation concerns. DME: ?Pt has a nebulizer. states no need for further DME at this time.? HHC/SNF: No hx of either. Pt and deny needs. No needs identified. Pt wishes to return home and states has no concerns with going home at time of discharge.??CM?to follow for any discharge planning/needs.? Pt and voice no concerns/needs at this time.? Advised pt and to ask for?CM?if any questions/concerns/needs arise.? They voice understanding. PLAN:??Home w/spousal support and discharge plans in place. Edmar BSN?RN?CM
[2023-02-24] MEDS: oxyCODONE 5 MG Tablet PO (15:54)
--- NOTE | 2023-02-24 17:13 | PN.HOSP_ITS ---
Reason for Visit Reason for Visit: Diagnoses Disease of pericardium, unspecified (02/23/23) Unspecified atrial fibrillation (02/23/23) Subjective Subjective Patient was seen and examined today, she remains in atrial fibrillation at this time, heart rate sometimes goes up into the 120s and 130s, I administered IV digoxin today plus extra Lopressor, she also received 1 dose of IV amiodarone. I talked with cardiology about her care. Patient has continued to have chest pain and I have written for Oxy IR for severe pain. Objective Data Objective Data Vital Signs: Vital Signs Temp Pulse Resp BP Pulse Ox O2 Del Method O2 Flow Rate 98.1 F 114 H 18 101/71 94 Room Air 2 02/24/23 15:35 02/24/23 15:35 02/24/23 15:35 02/24/23 15:35 02/24/23 15:35 02/24/23 15:35 02/24/23 00:15 Oxygen Flow Rate (L/min) 2 Oxygen Delivery Method Room Air Weight: 94.6 kg Body Mass Index (BMI) 29.9 Intake & Output: Intake and Output for Last 24 Hours 02/22/23 02/23/23 02/24/23 23:59 23:59 23:59 Intake Total 3554.42 / 3754.42 2042 Balance 3554.42 / 3754.42 2042 Lab / Micro Data 02/24/23 06:03 02/24/23 06:03 Labs: Laboratory Results - last 24 hr 02/23/23 14:27: C-React Prot High Sens > 190.00 H 02/24/23 06:03: WBC 15.5 H, RBC 4.17 L, Hgb 12.3, Hct 37.4, MCV 89.7, MCH 29.5, MCHC 32.9, RDW Std Deviation 49.5 H, RDW Coeff of Andres 15.1 H, Plt Count 176, MPV 8.8, Immature Gran % (Auto) 1.100 H, Neut % (Auto) 73.5 H, Lymph % (Auto) 15.5 L , Mccormick % (Auto) 8.7, Eos % (Auto) 1.0, Baso % (Auto) 0.2, Absolute Neuts (auto) 11.4 H, Absolute Lymphs (auto) 2.40, Nucleated RBC % 0, Sodium 132 L, Potassium 3.7, Chloride 104, Carbon Dioxide 20.0 L, Anion Gap 8, BUN 24 H, Creatinine 0.76, Estim Creat Clear Calc 94.70, Est GFR (MDRD) Af Amer 103, Est GFR (MDRD) Non-Af 85, BUN/Creatinine Ratio 31.6 H, Glucose 156 H, Calcium 8.8 Micro: Microbiology 02/23/23 22:03 Urine, Clean Catch Legionella Antigen - Final 02/23/23 22:03 Urine, Clean Catch Streptococcus pneumoniae Antigen (M - Final Radiography Diagnostic Testing: Radiology Impression Echocardiogram 02/23/23 07:33 Interpretation Summary Normal LV size. Left ventricular systolic function is normal. The estimated ejection fraction is 55 %. Pulmonary artery systolic pressure is 26 mmHg. There are no echocardiographic indications of cardiac tamponade. Mild To moderate pericardial effusion Ordering Physician: Franklin Bright Performed By: Kim Arroyo RDCS Echocardiogram 02/23/23 16:05 Interpretation Summary Normal LV size. Left ventricular systolic function is normal. Moderate pericardial effusion. There are no echocardiographic indications of cardiac tamponade. Ordering Physician: Franklin Bright Performed By: Kim Arroyo RDCS Physical Exam Narrative alert, oriented x3, no apparent distress and average body habitus General Appearance: cooperative, well kempt and well developed Orientation / Consciousness: awake, oriented to person, oriented to place and oriented to time HEENT normocephalic, head/scalp atraumatic, hearing grossly normal bilaterally and moist oral mucous membranes Eyes PERRL, EOMs intact bilaterally and conjunctivae normal Neck supple, no JVD, thyroid normal and no carotid bruits General: trachea midline Resp normal respiratory effort, no retractions, no use of accessory muscles and clear to auscultation bilaterally Auscultation: Negative for rales, rhonchi or wheezes Cardio S1 normal heart sound, S2 normal heart sound, no murmurs, no rub and no gallops Cardio Narrative: Heart rate and rhythm is irregular GI normal to inspection, nondistended, normoactive bowel sounds, soft to palpation, non-tender and non-distended Extremity no clubbing, cyanosis or edema Skin no rashes or lesions noted General Skin Exam: no breakdown Neuro oriented x3, CN's II-XII intact bilaterally, moves all extremities, no focal motor deficits and no sensory deficits noted Sensorium / Orientation: awake, alert, oriented to person, oriented to place and oriented to time Speech: speech normal Psych affect normal Assessment & Plan Assessment/Plan (1) Pericarditis: QUALIFIERS: Pericarditis type: idiopathic (2) Atrial fibrillation with RVR: PLAN: Plan 1. Atrial fibrillation with RVR-patient is now on Lanoxin and a beta-duke for rate control, she will continue to be monitored, she received 1 IV dose of amiodarone today #2 pericarditis-patient is on colchicine and ibuprofen, she is being seen by cardiology. #3 protein C deficiency-complicates care, medical course, recovery, and prognosis #4 leukocytosis-probably secondary to recent corticosteroid administration, CBC will be repeated tomorrow #5 pulmonary embolism-this is a small subsegmental pulmonary embolism, for the time being she will have to remain off Xarelto #6 Graves' disease-patient is on methimazole Total clinical time spent by myself addressing the patient's medical issues, reviewing all of her data, and collaborating with patient's care team: 35 minutes Charges/Coding Visit Charges Inpatient E&M: 83945 Subs Hosp L2
[2023-02-24] MEDS: Amiodarone 200 MG Tablet PO (21:53)
[2023-02-24] MEDS: Metoprolol Tartrate 50 MG Tablet PO (21:54)
[2023-02-25] VITALS (8 sets, daily range): BP systolic 93–106; BP diastolic 63–74; PULSE 71–85; RESP 16–18; TEMP 36.6–36.9; O2SAT 92–95
[2023-02-25] MEDS: Ibuprofen 600 MG Tablet PO ×3 (00:06→11:37)
[2023-02-25] MEDS: oxyCODONE 5 MG Tablet PO ×2 (00:09→15:07)
[2023-02-25] MEDS: Ipratropium/Albuterol Sulfate 3 ML AMPUL.NEB INHALATION ×3 (01:52→14:01)
[2023-02-25] MEDS: 0.9% Normal Saline (1000mL) 1,000 ML 100 ML IV (05:35)
[2023-02-25] MEDS: Amiodarone 200 MG Tablet PO ×2 (05:35→15:08)
--- NOTE | 2023-02-25 10:27 | PN.CARD_ITS ---
Subjective Subjective Patient seen and evaluated Objective Data Vital Signs: Vital Signs Temp Pulse Resp BP Pulse Ox O2 Del Method O2 Flow Rate 97.9 F 85 18 106/74 94 Room Air 2 02/25/23 03:00 02/25/23 06:43 02/25/23 06:43 02/25/23 03:00 02/25/23 06:43 02/25/23 06:43 02/24/23 00:15 Oxygen Flow Rate (L/min) 2 Oxygen Delivery Method Room Air Weight: 208 lb 8.917 oz Body Mass Index (BMI) 29.9 Intake & Output: Intake and Output for Last 24 Hours 02/23/23 02/24/23 02/25/23 23:59 23:59 23:59 Intake Total 3554.42 / 3754.42 3283 / 3533 1450 / 1450 Balance 3554.42 / 3754.42 3283 / 3533 1450 / 1450 Lab / Micro Data 02/24/23 06:03 02/24/23 06:03 Cardiology Labs/Tests Rhythm: EKG: ECHO: Stress Test: Cardiac Cath: PCI: CT Surgery: Holter monitor: EPS: PPM: CXR: Chest CT Scan: Radiography Diagnostic Testing: Radiology Impression Echocardiogram 02/23/23 16:05 Interpretation Summary Normal LV size. Left ventricular systolic function is normal. Moderate pericardial effusion. There are no echocardiographic indications of cardiac tamponade. Ordering Physician: Franklin Bright Performed By: Kim Arroyo RDCS Physical Exam Const alert, oriented x3 and no apparent distress General Appearance: cooperative HEENT hearing grossly normal bilaterally Head and Scalp: atraumatic Eyes EOMs intact bilaterally Neck General: normal visual inspection Chest inspection of chest normal and palpation of chest normal Resp normal respiratory effort Auscultation: clear to auscultation bilaterally Cardio S1 normal heart sound and S2 normal heart sound Jugular Venous Distention: JVD Rhythm: abnormal rhythm irregularly irregular GI normal to inspection, nondistended, normoactive bowel sounds Extremity normal capillary refill and no pedal edema Peripheral Pulses: Yes pulses 2+ throughout and femoral pulses present Skin no rashes or lesions noted Neuro oriented x3 and CN's II-XII intact bilaterally Psych Appearance: grossly normal and appropriate Assessment & Plan Assessment/Plan (1) Atrial fibrillation with RVR: PLAN: Patient has a history of atrial fibrillation with previous Graves' disease. She did present with rapid ventricular response rate. She was initially put on diltiazem which has been discontinued and her metoprolol has been resumed. At this time with a chads Vascor of 1 I would recommend that we hold off on the anticoagulation especially since the patient has a pericardial effusion. We will evaluate this and make further decisions. * We will continue current beta-duke (2) Pericarditis: QUALIFIERS: Pericarditis type: idiopathic PLAN: Patient presents with fatigue shortness of breath and is noted to have ST elevation in all the EKG leads except for aVR consistent with acute pericarditis. My recommendations will be as follows: * Colchicine 0.6 mg twice daily * Nonsteroidal anti-inflammatory agent * Anticoagulation should remain DC anticoagulation for now * Serial echocardiograms and her echo cardiogram this morning demonstrates mild expansion of the pericardial effusion. It is now measuring approximately 2.5 to 3 cm. Though there is no significant evidence of tamponade physiology I will prefer that she be in a tertiary care facility where if she needs to have a pericardiocentesis this may be able to be performed with surgical backup. * * Thank you for allowing me to participate in the care of your patient. Please don't hesitate to call if any issues arise.
[2023-02-25] MEDS: methIMAzole 5 MG TABLET PO (11:36)
[2023-02-25] MEDS: Digoxin 250 MCG Tablet PO (11:37)
[2023-02-25] MEDS: Metoprolol Tartrate 25 MG Tablet PO (11:37)
[2023-02-25] MEDS: Colchicine 0.6 MG TABLET PO (11:37)
--- NOTE | 2023-02-25 12:03 | CASEMGMT ---
ASHWIN LAY NOTE: Insurance review for hospitals In-network with?[employer] PPO Insurance if transfer is recommended is as follows: [facility], [place], [facility], [facility], [facility], [facility], [facility] ([facility]), [facility], and . Edmar BENITEZN ASHWIN CM
--- NOTE | 2023-02-25 15:40 | NURSING ---
Report called to ASHWIN Oakes at [place] at [phone].
--- NOTE | 2023-02-26 14:10 | PCM.DC.SUM ---
Providers Date of Admission: 02/23/23 Primary Care Physician: OSCAR VILLAGOMEZ Consultations 02/23/23 16:05 Consult: Cardiology Routine Consulting Provider: Freddy Bacon Reason for Consult: pericarditis EMERGENT Consult: No MD Notified: Yes Date Notified: 02/23/23 Time Notified: 16:06 Method of Notification: Verbal Method of Consult:: In-Person Reason For Visit: A-FIB WITH RVR, HYPOXIA, PNEUMONIA Diagnosis Discharge Diagnosis (1) Atrial fibrillation with RVR: Status: Acute Code(s): I48.91 - Unspecified atrial fibrillation (2) Pericarditis: Status: Acute Code(s): I31.9 - Disease of pericardium, unspecified Qualifiers: Pericarditis type: idiopathic Plan 1. Atrial fibrillation with RVR #2 pericarditis-patient is on colchicine and ibuprofen, she is being seen by cardiology. #3 protein C deficiency-complicates care, medical course, recovery, and prognosis #4 leukocytosis-probably secondary to recent corticosteroid administration, CBC will be repeated tomorrow #5 Acute pulmonary embolism present on admission-this is a small subsegmental pulmonary embolism, for the time being she will have to remain off Xarelto #6 Graves' disease-patient is on methimazole Pneumonia was ruled out Total clinical time spent by myself addressing the patient's medical issues, reviewing all of her data, and collaborating with patient's care team: 35 minutes Medications at Discharge Home Medications ascorbic acid (vitamin C) 500 mg tablet 500 mg PO DAILY@0800 SUPPLEMENT 01/22/16 cholecalciferol (vitamin D3) 50 mcg (2,000 unit) capsule 4,000 unit PO DAILY 01/22/16 methimazole 10 mg tablet 5 mg PO BID THYROID 01/22/16 rivaroxaban 20 mg tablet 20 mg PO DAILY DVT HX 01/22/16 Biotin 10,000 mcg PO DAILY SUPPLEMENT 01/03/17 Sea Of Greens 6 tab PO DAILY 12/31/18 azithromycin 250 mg tablet (Zithromax Z-Rashad) See Rx Instructions PO .COMPLEX #12 tabs 02/22/23 doxycycline hyclate 100 mg capsule 100 mg PO BID 10 days #20 caps 02/22/23 fluticasone fur. 100 mcg-umeclid 62.5 mcg-vilant 25 mcg inhalat.powder (Trelegy Ellipta) 1 inh inhalation DAILY #60 ea 02/22/23 oxycodone-acetaminophen 5 mg-325 mg tablet (Percocet) 1 tab PO Q6H PRN pain 3 days #12 tabs 02/22/23 albuterol sulfate 90 mcg/actuation aerosol inhaler 2 inh inhalation Q6H PRN sob 02/23/23 metoprolol succinate 25 mg tablet,extended release 24 hr 25 mg PO DAILY heart 02/23/23 Hospital Course Operations None Procedures 2-D Echocardiogram Summary of Care Provided Minutes Spent on Discharge: 32 Hospital Course: This 52-year-old white female was seen in the emergency room at [facility] with complaints of shortness of breath, chest pressure, and malaise. She was treated as an outpatient by her PCP with prednisone due to concerns of bronchospasm. She had also been seen in the emergency room at [facility] the day before with complaints of chest pain, at that time she was taking prednisone but came in for evaluation of the chest pain. At that visit she had a CTA of her chest which showed a small pulmonary emboli, the ER doc called oncology and discussed the case with them and they recommended continuing the patient's Xarelto. She was also felt to have had pneumonia during that ER visit and was prescribed doxycycline and Zithromax as well as a Trelegy inhaler. Again the patient came back the next day with complaints of not feeling well and ongoing left-sided chest pain, chest x-ray obtained showed bilateral increased basilar multifocal linear atelectasis and borderline cardiomegaly without florid edema, patient's white blood cell count was elevated at 24.6, patient's beta natruretic peptide was elevated at 108 and lactic acid was 3. cafeteria monitor in the ER showed the patient to be in atrial fib with a rate of 180, she was given IV Cardizem and placed on a Cardizem drip. Patient had additional rate limiting medications added-digoxin, beta-duke, and amiodarone. Patient was given IV antibiotics in the emergency room, she was admitted to PCU but this examiner on review of the patient's medical record did not feel she had pneumonia, there was noted to be ST-T wave elevations in several of her leads on her EKG, an echocardiogram was obtained which showed a pericardial effusion and it was felt that the patient actually had pericarditis. She was seen in consultation by cardiology. She was placed on colchicine and ibuprofen, her Xarelto was stopped due to concerns that she could have bleeding with her pericarditis. Over the next 2 days, echocardiograms were obtained which showed an increase in her fluid amount in her pericardium, on 02/25/2023, cardiology contacted me and was concerned because her effusion had now become larger, cardiology recommended the patient be transferred out to a tertiary facility which have the capabilities for pericardiocentesis. [facility] in [place] was contacted and agreed to take the patient. I spoke with Dr. Carmona the security officer supervisor there. On 02/25/2023, patient was seen and examined: On examination she appeared tired, she does not appear to be in any distress. Vital signs as documented. Skin warm and dry and without overt rashes. Neck without JVD, thyroid appears normal, trachea is midline, neck is supple. Lungs clear, normal air movement was noted. Heart exam notable for regular rhythm, normal sounds and absence of murmurs, rubs or gallops. Abdomen unremarkable and without evidence of organomegaly, masses, or abdominal aortic enlargement, bowel sounds are present in all 4 quadrants, no abdominal tenderness was noted. Extremities nonedematous, no cyanosis was noted, no clubbing was noted. Neuro: Cranial nerves II through XII are grossly intact, no focal motor deficits were noted, sensation to light touch and pinprick is intact, motor exam 5/5 throughout. Psych: Patient is alert and oriented x3, she does not appear anxious or depressed, she does not appear agitated. Patient was transferred to [facility] in [facility] for further care in stable condition on 02/25/2023. Weight / BMI Weight Weight: 94.6 kg Body Mass Index (BMI) 29.9 ABG / Lab / Microbiology Data 02/24/23 06:03 02/24/23 06:03 Microbiology: Microbiology 02/23/23 07:36 Blood Culture (Wb) - Anticubital Left Blood Culture - Preliminary No growth in 48 hours. 02/23/23 07:17 Blood Culture (Wb) - Anticubital Right Blood Culture - Preliminary No growth in 48 hours. 02/23/23 22:03 Urine, Clean Catch Legionella Antigen - Final 02/23/23 22:03 Urine, Clean Catch Streptococcus pneumoniae Antigen (M - Final Meaningful Use Info Meaningful Use Diagnoses (Choose all that apply): None applicable Discharge Plan Admission Admit Date/Time: 02/23/23 07:28 Attending Provider: Franklin Bright Primary Care Provider: OSCAR VILLAGOMEZ Consulting Providers: Freddy Bacon Discharge Orders/Prescriptions Prescriptions: No Action ascorbic acid (vitamin C) 500 MG tablet 500 mg PO DAILY@0800 Patient Comments: SUPPLEMENT methimazole 10 MG tablet 5 mg PO BID Patient Comments: THYROID cholecalciferol (vitamin D3) 2,000 UNIT capsule 4,000 unit PO DAILY Patient Comments: SUPPLEMENT rivaroxaban 20 MG tablet 20 mg PO DAILY Patient Comments: BLOOD THINNER Biotin 10,000 MCG tablet 10,000 mcg PO DAILY [place] 6 tab PO DAILY oxycodone-acetaminophen [Percocet] 5-325 mg tablet 1 tab PO Q6H PRN (Reason: pain) 3 Days Qty: 12 0RF Trelegy Ellipta 100-62.5-25 mcg blister with device 1 inh inhalation DAILY Qty: 60 0RF azithromycin [Zithromax Z-Rashad] 250 mg tablet See Rx Instructions .ROUTE .COMPLEX Qty: 12 0RF Rx Instructions: For 250 mg dose pack: take 500 mg today (day 1), then 250 mg for 4 days (days 2-5). Repeat same instructions for the second blister pack doxycycline hyclate 100 mg capsule 100 mg PO BID 10 Days Qty: 20 0RF metoprolol succinate 25 mg tablet extended release 24 hr 25 mg PO DAILY albuterol sulfate 90 mcg/actuation HFA aerosol inhaler 2 inh inhalation Q6H PRN (Reason: sob) Referrals / Follow Up: OSCAR VILLAGOMEZ [[facility]] [facility] Doctor,Out of [Non-Staff] - Disposition Disposition (needs filled in before D/C Order can be placed): Acute Care Hospital Charges/Coding Visit Charges Inpatient E&M: 84037 Disch Hosp >30min
== END 2023-02-25 15:49 | disposition short-term general hospital (02) | DRG 314 ==
LOC: ED 06:52 → PCU 11:23
PROVIDERS: Internal Medicine Cardiovascular Disease; Admitting Provider Internal Medicine; Emergency Provider Emergency Medicine; Visit Provider Internal Medicine
DX: I30.0 Acute nonspecific idiopathic pericarditis (principal); I26.99 Other pulmonary embolism without acute cor pulmonale; D68.59 Other primary thrombophilia; I48.91 Unspecified atrial fibrillation; E05.00 Thyrotoxicosis with diffuse goiter without thyrotoxic crisis or storm; D72.828 Other elevated white blood cell count; F17.210 Nicotine dependence, cigarettes, uncomplicated; Z79.01 Long term (current) use of anticoagulants; Z79.899 Other long term (current) drug therapy; Z86.718 Personal history of other venous thrombosis and embolism
CPT/HCPCS: 36415; 71045; 80048; 83605; 83880; 84484; 85025; 86141; 87040; 87449; 93005; 93306; 93308; 94640; 99252; 99285; J7030; J7040; J7050; Q9957; A4216; G0463; J2405

== ENCOUNTER 2023-03-10 07:31 | Inpatient (IN) | payer OTHER, SELFPAY ==
[2023-03-10] VITALS (14 sets, daily range): BP systolic 93–130; BP diastolic 60–82; PULSE 88–153; RESP 16–93; TEMP 35.8; O2SAT 91–99; BMI 31.3
[2023-03-10] MEDS: Metoprolol Tartrate 5 MG/5 ML Vial IV ×2 (08:03→08:12)
[2023-03-10 08:15] LABS: Absolute Neutrophil Count 6.4 X10^3/uL (2.0-7.7); Basophil# 0.04 X10^3/uL; Basophil% 0.4 % (0-1); Hematocrit 29.5 % (37-47); Hemoglobin 9.5 g/dL (12.0-15.0); Lymphocyte % 18.8 % (19-41); Mean Corp Hgb Conc 32.2 g/dL (32-36); Mean Corpuscular Volume 89.9 fL (81-99); Monocyte# 1.59 X10^3/uL; Monocyte% 15.7 % (0-10); NRBC Flagged by Analyzer 0 % (0-5); Neutrophil # 6.43 X10^3/uL (2.7-7.7); Neutrophil % 63.4 % (47-70); POSITIVE DIFFERENTIAL YES; Platelet Count 548 K/mm3 (150-450); RBC Distribution Width CV 15.5 % (11.6-14.6); Red Blood Count 3.28 M/mm3 (4.2-5.4); White Blood Count 10.1 K/mm3 (4.4-11.0)
--- NOTE | 2023-03-10 08:15 | RAD_ITS ---
EXAM: XR CHEST, 1 VIEW CLINICAL INDICATION: Left and central chest pain TECHNIQUE: Frontal view of the chest. COMPARISON: 02/23/2023. FINDINGS: LUNGS AND PLEURAL SPACES: Prominent bilateral pleural effusions, left more than right. Compressive atelectasis of the lung bases, left more than right. No pneumothorax. No pulmonary vascular redistribution. HEART: Cardiomegaly. MEDIASTINUM: Central airways and mediastinal contour are unremarkable. BONES/JOINTS: Unremarkable. SOFT TISSUES: Unremarkable. RAD/Chest 1 View (Portable) IMPRESSION: New moderate bilateral pleural effusions with compressive atelectasis of the lung bases, left more than right. Etiology isn''t known since there is no pulmonary vascular redistribution. Advise clinical correlation. Electronically Signed: Chris Petit MD at 8:37 EDT ,
[2023-03-10 08:16] LABS: Differential Indicated SCAN CRITERIA MET
--- NOTE | 2023-03-10 08:23 | ED.RN ---
Patient blood pressure dictated only receiving 3 mg of 2nd dose of metoprolol. EMD aware and remaining doses discontinued. Patient asymptomatic.
[2023-03-10 08:37] LABS: Anion Gap 7 (5-15); BUN 11 mg/dL (7-18); BUN/Creat Ratio 14.8 RATIO (10-20); Calcium,Total 9.1 mg/dL (8.5-10.1); Chloride 100 mmol/L (98-107); Creatinine, Serum 0.74 mg/dL (0.55-1.02); EST Glomerular Filtration Rate 87 mL/min (>60); Est Glom Filt Rate - Afr Amer 106 mL/min (>60); Estimated Creatinine Clearance 97.26 ml/min; Glucose 158 mg/dL (74-106); Potassium 3.3 mmol/L (3.5-5.1); Sodium Level 135 mmol/L (136-145); Troponin-I HS (w/2H Reflex) < 3 pg/mL (3.0-54.0)
[2023-03-10 08:42] LABS: Differential Comment SCANNED; Erythrocyte Sedimentation Rate 38 mm/hr (0-30)
--- NOTE | 2023-03-10 08:59 | ED.VIS.CHEST ---
HPI History of Present Illness Chief Complaint: Chest Pain Detail of Chief Complaint: Chest pain and left-sided chest pain Informant: patient and spouse/S.O. Limited: other (Patient is a poor informant. She attributes lack of improvement to ice doing things improperly or not correctly.) Onset/Context/Timing Onset: Today (Making him sleep with left-sided chest pain. There is not a pleuritic component.) Activity at onset: sudden Timing: Continuous Quality: Positive for Aching and Sharp Location: Left Parasternal Current Severity: Mild Maximum Severity: Severe Worsened By: Movement of Torso and Palpation; Not Worsened By Breathing or Coughing Relieved By: Nothing Associated Symptoms: Positive for - (There is no reflux.); Negative for Nausea, Vomiting, Diaphoresis, Dyspnea, Cough, Fever, Lightheadedness, Acid Reflux or Palpitations Narrative Narrative: Patient is a 52-year-old woman who was admitted to [facility] February for left. She was transferred to [facility] for concern regarding large pericardial effusion and possible tamponade. She was on an anticoagulant. Her anticoagulant was discontinued. She was restarted on Pradaxa by the team of physicians caring for her at [facility]. She is presently on colchicine 0.6 mg twice daily, ibuprofen 600 mg to treat her pericarditis. Repeat echocardiogram revealed improvement in pericardial fluid size. Patient's had chest pain in the center of her chest. It has been present for some time and spite of her taking NSAID and colchicine. She presents because she was awakened because of left-sided chest pain. There is no radiation or associated symptoms. She states she was diagnosed with blood clot. There was no mention of blood clot by Dr. Franklin Bright who altered her transfer/discharge summary. Patient states she has had swelling because of the amount of fluid she was given at [facility] and they have not gone down. She has not been compliant with her diet either. Prior Similar Symptoms: Yes and - (Large pericardial effusion due to pericarditis) Recent Illness/Hospitalization: Yes CVD Risk Factors: Negative for Hypertension, Diabetes, Family History 1' </=55 or Smoking PE Risk Factors: Negative for Recent Travel/Surgery, Recent Immobilization, Cancer or OCP + Smoking + >/=35 TAD Risk Factors: Negative for Marfan's Syndrome, Hypertension or Family History [facility] Medical History Anemia Atrial fibrillation Clotting disorder Graves disease History of blood transfusion History of DVT (deep vein thrombosis) history of uterine surgery Hypotension Leukocytosis Low protein C activity level Multiple thyroid nodules Pulmonary emboli Seasonal allergies Thyroid disease Home Medications ascorbic acid (vitamin C) 500 mg tablet 500 mg PO DAILY@0800 SUPPLEMENT 01/22/16 [History Last Taken 01/22/16 08:30] cholecalciferol (vitamin D3) 50 mcg (2,000 unit) capsule 4,000 unit PO DAILY 01/22/16 [History Last Taken 01/22/16 08:00] methimazole 10 mg tablet 5 mg PO BID THYROID 01/22/16 [History Last Taken 01/07/19] rivaroxaban 20 mg tablet 20 mg PO DAILY DVT HX 01/22/16 [History Last Taken 12/30/18] Biotin 10,000 mcg PO DAILY SUPPLEMENT 01/03/17 [History Last Taken Unknown] [place] 6 tab PO DAILY 12/31/18 [History Last Taken Unknown] azithromycin 250 mg tablet (Zithromax Z-Rashad) See Rx Instructions PO .COMPLEX #12 tabs 02/22/23 [Rx Last Taken Unknown] doxycycline hyclate 100 mg capsule 100 mg PO BID 10 days #20 caps 02/22/23 [Rx Last Taken Unknown] fluticasone fur. 100 mcg-umeclid 62.5 mcg-vilant 25 mcg inhalat.powder (Trelegy Ellipta) 1 inh inhalation DAILY #60 ea 02/22/23 [Rx Last Taken Unknown] oxycodone-acetaminophen 5 mg-325 mg tablet (Percocet) 1 tab PO Q6H PRN pain 3 days #12 tabs 02/22/23 [Rx Last Taken Unknown] albuterol sulfate 90 mcg/actuation aerosol inhaler 2 inh inhalation Q6H PRN sob 02/23/23 [History Last Taken Unknown] metoprolol succinate 25 mg tablet,extended release 24 hr 25 mg PO DAILY heart 02/23/23 [History Last Taken Unknown] Allergy/AdvReac Type Severity Reaction Status Date / Time No Known Allergies Allergy Verified 02/23/23 05:34 Family History Father Hyperlipemia Diabetes Grandmother Breast cancer Colon cancer Diabetes Hyperlipemia Surgical History Hx of cholecystectomy Previous back surgery Status post fine needle aspiration (~05/2020) [place] teeth extracted Social History Smoking Status: Current every day smoker tobacco type: cigarettes alcohol intake: current alcohol intake frequency: a few times a week Alcohol type: beer and wine ROS ROS ED Review of Systems ROS Unobtainable: other Details: Patient does not answer questions asked even after redirection. And please read HPI narrative Constitutional Constitutional ED: Reports other Details: Patient reports weight gain with edema. ; Denies chills, fever(s), sweats or weight loss Eyes Eyes: Reports none ENT ENT ED: Denies ear pain, rhinorrhea or sore throat Cardiovascular Cardiovascular: Reports as per HPI and orthopnea; Denies paroxysmal nocturnal dyspnea Respiratory/Chest Respiratory/Chest: Reports dyspnea on exertion, orthopnea and other Details: Patient was sleeping in a lazy boy for some time. She has been sleeping in a lazy boy because of difficulty breathing when she is supine. ; Denies cough, paroxysmal nocturnal dyspnea or sputum Gastrointestinal Gastrointestinal: Denies abdominal pain, diarrhea, melena, nausea or vomiting Genitourinary Genitourinary ED: Denies dysuria, hematuria or urinary frequency Musculoskeletal Musculoskeletal: Denies arthralgias, back pain or myalgias Integumentary Denies rash Neurologic Neurologic: Reports weakness; Denies headache(s) or paresthesias Psychiatric Psychiatric: Reports anxiety Endocrine Endocrinology: Reports heat intolerance; Denies cold intolerance Hematologic/Lymphatic Hematologic/Lymphatic: Denies easy bleeding or easy bruising Allergic/Immunologic Allergic/Immunologic ED: Denies mouth swelling or tongue swelling EXAM Physical Exam Narrative Exam Narrative: Initial vital signs noted. Since patient's pressure is normal and heart rate is 140 with A-fib and history of Graves' disease patient received metoprolol for rate control. Const Vital Signs: 03/10/23 07:32 03/10/23 07:49 03/10/23 08:13 Temperature 96.4 F L Temperature Source Temporal Pulse Rate 140 H 112 H Respiratory Rate 20 H 93 H Respiratory Effort Normal Respiratory Pattern Normal Blood Pressure 118/82 H 110/71 Blood Pressure Mean 94 84 Pulse Ox 96 Oxygen Delivery Method Room Air Room Air 03/10/23 08:18 03/10/23 08:43 03/10/23 09:00 Temperature Temperature Source Pulse Rate 99 99 121 H Respiratory Rate 16 16 18 Respiratory Effort Respiratory Pattern Blood Pressure 103/76 94/60 Blood Pressure Mean 85 71 Pulse Ox 93 98 98 Oxygen Delivery Method Room Air Room Air T-piece 03/10/23 10:00 Temperature Temperature Source Pulse Rate 110 H Respiratory Rate 16 Respiratory Effort Respiratory Pattern Blood Pressure 102/79 Blood Pressure Mean 86 Pulse Ox 99 Oxygen Delivery Method Room Air Positive well nourished, well developed and obese General Appearance ED: well developed, NAD and pallor Nutritional Appearance: obese HEENT Reports TM's clear and moist mucous membranes normocephalic and atraumatic Tympanic Membrane ED: Yes TM's clear Eyes PERRL and EOMs intact bilaterally General Eye ED: Yes pale conjunctiva; Negative for scleral icterus Neck no lymphadenopathy, supple and no JVD Neck Narrative: Trachea is midline. Chest Wall inspection of chest normal and palpation of chest normal Resp normal respiratory effort and No clear to auscultation bilaterally Auscultation: rales bilateral lower and diminished lung sounds bilateral (Predominantly at the base) Cardio no murmurs Rate: tachycardic Rhythm: abnormal rhythm irregularly irregular Peripheral Pulses: pulses 2+ throughout GI normal to inspection, nondistended, normoactive bowel sounds, soft to palpation, non-tender, non-distended and no masses; Negative for hepatosplenomegaly Back/Spine no CVA tenderness Extremity Negative for normal to inspection General Extremety ED: Yes edema General Extremity: edema Neuro oriented x3, CN's II-XII intact bilaterally, no sensory deficits noted and gait normal Sensorium / Orientation: awake and alert Motor Exam: strength 5/5 throughout Psych Psych Narrative: Affect is flat. Mood & Affect: depressed Skin no rashes or lesions noted and no wounds General Skin Exam: pallor; Negative for jaundice MDM MDM MDM Narrative Medical decision making narrative: Patient with A-fib RVR with recent admission for large pericardial effusion and pericarditis who is presently on NSAID, colchicine and Pradaxa. Since patient appears pale will need to evaluate CBC to rule out acute anemia. Because she has history of Graves' disease with A-fib with rapid ventricular response and symptoms of hyperthyroidism patient was treated with metoprolol. Metoprolol 5 mg every 5 minutes x3 was ordered. Patient had a drop in pressure after a total of 8 mg was administered. Because of the abnormal oscillatory findings and edema of the lower extremity chest x-ray was obtained. Since chest x-ray is abnormal spoke with the documentation billing clerk on-call for Dr. Toth. Agrees with obtaining stat echo to determine cause of her moderate bilateral pleural effusions which are new from earlier this month. Furthermore this is unusual since there is no evidence of cephalization or curly B-lines on the chest x-ray. The radiology report was read well and he sees there is no cephalization or curly B-lines. Will add BNP to present labs are ordered. Because patient was awakened from sleep with chest pain troponin was obtained. First troponin is less than 3 with approximately 7 hours of pain. Patient's BUN to creatinine ratio is normal. This would make it likely that the drop in hemoglobin is due to an acute blood loss. Patient had an echocardiogram performed on February 25. LV size was normal. Estimated ejection fraction was 55%. There was no regional wall motion abnormalities noted. There was a moderate to large pericardial effusion with no evidence of diastolic chamber collapse. There was concern for intraluminal clot. The echo was compared to echo performed on February 24. Of note the effusion was noted to be worse. History & Record Review Additional record(s) reviewed:: Prior inpatient record, Prior ED visit and Prior labs Lab Data Attestation: I reviewed the patient's lab results. Lab results narrative: Patient has anemia which is new from most recent laboratory results. She is dropped her hemoglobin approximately 3 g. Electrolyte panel is remarkable potassium of 3.3. BUN and creatinine are normal. First troponin is less than 3. Glucose is 158 with a normal CO2 anion gap. Labs: Laboratory Results - last 24 hr 03/10/23 03/10/23 07:46 10:05 WBC 10.1 RBC 3.28 L Hgb 9.5 L Hct 29.5 L MCV 89.9 MCH 29.0 MCHC 32.2 RDW Std Deviation 51.0 H RDW Coeff of Andres 15.5 H Plt Count 548 H MPV 9.0 Immature Gran % (Auto) 0.700 Neut % (Auto) 63.4 Lymph % (Auto) 18.8 L Jenkins % (Auto) 15.7 H Eos % (Auto) 1.0 Baso % (Auto) 0.4 Absolute Neuts (auto) 6.4 Absolute Lymphs (auto) 1.90 Nucleated RBC % 0 Differential Comment SCANNED ESR 38 H Sodium 135 L Potassium 3.3 L Chloride 100 Carbon Dioxide 28.0 Anion Gap 7 BUN 11 Creatinine 0.74 Estim Creat Clear Calc 97.26 Est GFR (MDRD) Af Amer 106 Est GFR (MDRD) Non-Af 87 BUN/Creatinine Ratio 14.8 Glucose 158 H Calcium 9.1 Troponin I High Sens < 3 L 3 B-Natriuretic Peptide 225.8 H Radiography Chest X-Ray - ED: 1 View and Read by ED Physician (Portable chest x-ray is not normal. Cardiac silhouette is obscured bilaterally due to moderate bilateral pleural effusions with probable atelectasis. There is no evidence of cephalization and there are no curly B-lines. Telemetry reviewed interpreted by me at 0832.) Diagnostic Testing: Clinical Impression(s) from Imaging Studies Chest X-Ray 03/10/23 08:15 IMPRESSION: New moderate bilateral pleural effusions with compressive atelectasis of the lung bases, left more than right. Etiology isn''t known since there is no pulmonary vascular redistribution. Advise clinical correlation. Electronically Signed: Chris Petit MD at 8:37 EDT , Echocardiogram 03/10/23 09:08 Interpretation Summary Normal LV size. Left ventricular systolic function is normal. The estimated ejection fraction is 55 %. Modearte to large pericardial effusion. No chamber collapse noted. Fibrinous material noted within the pericardial space suggesting likely blood clot. Ordering Physician: Rosalino Brunner Performed By: Jocelin Martínez, RDCS, RVT Rhythm Strip Rhythm Strip: A-fib Rate: 147 Ectopy: None EKG Initial EKG: Attestation: I personally reviewed and interpreted this EKG as follows: Interpretation: Atrial Fibrillation (Rate is 138. There is evidence of low voltage and nonseptic changes with may be artifact. QRS duration 80 ms for QT duration 282 ms. [place] is normal.) Management Discussion w/another healthcare provider: Medical Auditor (Cardiology and documented in the MDM portion of the chart) and Other (Poke with Dr. Freddy Bacon who read the echo. EF is 55%. Patient still has a significant pericardial effusion moderate to large. There is fibrinous material noted within the pericardial fluid and described as loculated. There is no evidence of tamponade. He is recommended return to [place] for p) Treatment and Re-Evaluation :: Case discussed with documentation billing clerk at [facility]. Patient was excepted at 1230. Critical Care Time Critical Care Time: Yes Critical care time (excluding procedures): 30-74 minutes (32), Including time spent: (History, physical, documentation, interpretation laboratory results, consultation with cardiology, treatment for A-fib RVR), Discussing w/Patient &/or Family/Sewing Trimmer (Made aware of test results and need for echocardiogram. She was informed that she needs to return to [facility] for pericardial window.), Discussing w/Consultants and Arranging Admission or Transfer Discharge Plan Triage Chief Complaint: Chest Pain ED Provider: Rosalino Brunner Dx/Rx/DC Orders Clinical Impression: Pericarditis, Atrial fibrillation with RVR, Pericardial effusion, Bilateral pleural effusion, Lymphedema of both lower extremities, Graves disease, Acute anemia Prescriptions: No Action ascorbic acid (vitamin C) 500 MG tablet 500 mg PO DAILY@0800 Patient Comments: SUPPLEMENT methimazole 10 MG tablet 5 mg PO BID Patient Comments: THYROID cholecalciferol (vitamin D3) 2,000 UNIT capsule 4,000 unit PO DAILY Patient Comments: SUPPLEMENT rivaroxaban 20 MG tablet 20 mg PO DAILY Patient Comments: BLOOD THINNER Biotin 10,000 MCG tablet 10,000 mcg PO DAILY [place] 6 tab PO DAILY oxycodone-acetaminophen [Percocet] 5-325 mg tablet 1 tab PO Q6H PRN (Reason: pain) 3 Days Qty: 12 0RF Trelegy Ellipta 100-62.5-25 mcg blister with device 1 inh inhalation DAILY Qty: 60 0RF azithromycin [Zithromax Z-Rashad] 250 mg tablet See Rx Instructions .ROUTE .COMPLEX Qty: 12 0RF Rx Instructions: For 250 mg dose pack: take 500 mg today (day 1), then 250 mg for 4 days (days 2-5). Repeat same instructions for the second blister pack doxycycline hyclate 100 mg capsule 100 mg PO BID 10 Days Qty: 20 0RF metoprolol succinate 25 mg tablet extended release 24 hr 25 mg PO DAILY albuterol sulfate 90 mcg/actuation HFA aerosol inhaler 2 inh inhalation Q6H PRN (Reason: sob) Primary Care Provider: OSCAR VILLAGOMEZ Referrals: OSCAR VILLAGOMEZ [Other] Disposition Disposition: Acute Care Hospital Discharge Location: [facility]
--- NOTE | 2023-03-10 09:08 | ECHOD_ITS ---
Reason For Study: pleural/pericardial effusions, chest pain, pericarditis Procedure This was a 2D Doppler, Color Flow transthoracic echocardiogram. Exam performed with patient sitting upright due to chest pain. Exam performed portable in ED. Left Ventricle Normal LV size. Left ventricular systolic function is normal. The estimated ejection fraction is 55 %. No regional wall motion abnormalities noted. Right Ventricle Normal RV size. Normal systolic function. Atria Normal left atrium. Normal right atrium. Mitral Valve Normal mitral valve. Tricuspid Valve Normal tricuspid valve. Aortic Valve Normal aortic valve. Pulmonic Valve Normal pulmonic valve. Great Vessels Normal aortic root. The pulmonary artery is normal size. No collapse of the inferior vena cava. Pericardium/Pleural Moderate pericardial effusion. Modearte to large pericardial effusion. No chamber collapse noted. Moderate size right pleural effusion. Moderate size left pleural effusion. MMode/2D Measurements & Calculations LVIDd: 4.6 cm IVSd: 0.93 cm Ao root diam: 3.4 cm LVIDs: 3.4 cm LVPWd: 0.98 cm RVDd: 3.1 cm FS: 26.2 % LAV(MOD-bp): 85.2 ml LVAd ap4: 20.4 cm2 SV(MOD-sp4): 27.8 ml LAV(MOD-bp) Indexed: 40.4 ml/m2 LVLd ap4: 7.8 cm LAV(MOD-sp2): 66.6 ml EDV(MOD-sp4): 44.4 ml LAV(MOD-sp4): 81.8 ml EDV(sp4-el): 44.9 ml LVAs ap4: 11.5 cm2 LVLs ap4: 7.0 cm ESV(MOD-sp4): 16.7 ml ESV(sp4-el): 16.2 ml EF(MOD-sp4): 62.5 % EF(sp4-el): 64.0 % SV(sp4-el): 28.8 ml LA A4 area: 25.7 cm2 LA dimension(2D): 3.9 cm RA A4 area: 19.2 cm2 TAPSE: 1.4 cm Doppler Measurements & Calculations MV E max raya: 85.0 cm/sec Ao V2 max: 125.2 cm/sec LV V1 max: 99.2 cm/sec Ao max P.3 mmHg LV V1 max P.9 mmHg Ao V2 mean: 91.7 cm/sec LV V1 mean P.2 mmHg Ao mean P.8 mmHg LV V1 mean: 69.2 cm/sec Ao V2 VTI: 18.8 cm LV V1 VTI: 15.1 cm AV (velocity ratio): 0.80 PA V2 max: 48.3 cm/sec TR max raya: 283.8 cm/sec PA V2 mean: 41.3 cm/sec TR max P.2 mmHg ECHO/Echo Complete Interpretation Summary Normal LV size. Left ventricular systolic function is normal. The estimated ejection fraction is 55 %. Modearte to large pericardial effusion. No chamber collapse noted. Fibrinous material noted within the pericardial space suggesting likely blood c lot. Ordering Physician: Rosalino Brunner Performed By: Jocelin Martínez RDCS, RVT
[2023-03-10 10:12] LABS: Reflex Troponin-HS? (from REC) Y
[2023-03-10 10:33] LABS: Troponin-I HS 3 pg/mL (3.0-54.0)
[2023-03-10 10:40] LABS: BNP,B-Type NATRIURETIC PEPTIDE 225.8 pg/mL (0-100)
--- NOTE | 2023-03-10 11:06 | NURSING ---
CALLED [facility] FOR TRANSFER
--- NOTE | 2023-03-10 12:45 | ED.RN ---
Patient up to bathroom, gait steady Returned to bed.
--- NOTE | 2023-03-10 13:09 | NURSING ---
[facility], CALLED. WILL GET A BED, BUT PROBABLE THIS EVENING FAXED FACE SHEET
[2023-03-10] MEDS: Ondansetron 4 MG/2 ML Vial IV (13:47)
[2023-03-10] MEDS: Morphine 4 MG/ML Syringe IV (13:47)
[2023-03-10] MEDS: HYDROmorphone 1 MG/ML Syringe 0.5 MG IV (15:03)
--- NOTE | 2023-03-10 17:43 | NURSING ---
CALL [facility] FOR BED STATUS. HAD TO LEAVE A MESSAGE
--- NOTE | 2023-03-10 18:14 | NURSING ---
[facility], CALLED. MORE THAN LIKELY YOU WON'T GET A BED TONIGHT
[2023-03-10] MEDS: fentaNYL 100 MCG/2 ML Ampul 50 MCG IV (22:21)
[2023-03-11] VITALS (23 sets, daily range): BP systolic 84–126; BP diastolic 62–96; PULSE 111–169; RESP 18–40; TEMP 36.7–37.5; O2SAT 90–94; BMI 30.9
--- NOTE | 2023-03-11 00:10 | ED.RN ---
nursing staff spoke with Dr. Maurer to check on status of admission since patient has been waiting for bed. Per. Dr. Maurer he spoke with Dr. Massey about admission not willing to accept patient at this time due to the amount of admissions given and not wanting to take another one at this time. Will continue to follow up with Andrew on admission
[2023-03-11] MEDS: Metoprolol(XL)Succ 25 MG Tablet PO (02:03)
[2023-03-11] MEDS: methIMAzole 5 MG TABLET PO (02:03)
--- NOTE | 2023-03-11 05:27 | ED.RN ---
[facility] called to check bed status. patient accepted awaiting bed in CCU per transfer center there is a long list of patients for that unit, hopefully a bed will be available today. advised to call back if patient is admitted here
--- NOTE | 2023-03-11 09:58 | ECHOL_ITS ---
Reason For Study: Dyspnea/SOB, Pericardial Effusion Procedure This was a limited 2D transthoracic echocardiogram. Exam performed portable in patient room. Left Ventricle Normal LV size. The estimated ejection fraction is 55 %. No regional wall motion abnormalities noted. Right Ventricle Normal RV size. Normal systolic function. Atria Normal left atrium. Normal right atrium. Pericardium/Pleural moderate to large pericardial effusion with fibrinous material in it.No significant chamber collapse noted. Large left pleural effusion. MMode/2D Measurements & Calculations LVIDd: 4.3 cm IVSd: 1.0 cm LVIDs: 2.9 cm LVPWd: 0.92 cm FS: 33.9 % Doppler Measurements & Calculations TR max raya: 293.0 cm/sec TR max P.3 mmHg ECHO/Echo, Limited Study Interpretation Summary The estimated ejection fraction is 55 %. moderate to large pericardial effusion with fibrinous material in it.No signifi cant chamber collapse noted Ordering Physician: Franklin Bright Performed By: Keesha Lan RDCS, RVT
[2023-03-11] MEDS: Spironolactone 25 MG Tablet PO (11:04)
[2023-03-11] MEDS: Colchicine 0.6 MG TABLET PO ×2 (11:04→16:54)
[2023-03-11] MEDS: Pantoprazole Sodium 40 MG Tablet PO (11:05)
[2023-03-11] MEDS: Dabigatran Etexilate Mesylate 150 MG Capsule PO (11:05)
[2023-03-11] MEDS: Metoprolol Tartrate 50 MG Tablet PO (11:05)
[2023-03-11] MEDS: oxyCODONE 5 MG Tablet PO (11:15)
[2023-03-11] MEDS: Furosemide 20 MG/2 ML VIAL IV (11:16)
[2023-03-11] MEDS: 0.9% Saline Lock 10 ML Syringe IV ×2 (11:17→14:38)
--- NOTE | 2023-03-11 11:22 | HP.PCM.HOS_ITS ---
HPI - General General Date of Admission: 03/11/23 Date of Service: 03/11/23 Chief Complaint: Shortness of breath, left-sided chest pain HPI Narrative KRISTI COOK, is a 52 F who presents to the emergency room at [facility] with complaints of chest pain and shortness of breath on exertion. Patient had been hospitalized recently here at the hospital for pericarditis, pericardial effusion, peripheral pulmonary embolism, and new onset A-fib. Due to the worsening of her pericardial effusion, she was transferred to [facility] for further care, she states to this examiner that all they did at [facility] was observe her, they did not perform pericardiocentesis. Patient denies that she had a cardiac catheterization done at [facility]. Patient was evaluated yesterday in the emergency room, she had an echocardiogram performed which showed a moderate to large pericardial effusion but there was no evidence of tamponade. It was recommended by cardiology here that the patient be transferred to [facility], [facility] agreed to except the patient but there were no beds available and so the patient spent all day in the last night in the ER. Patient is being admitted due to the fact she has been in the ER for several hours, she will be admitted to PCU, her heart rate at this time is in the 140s (A-fib), chest x-ray yesterday showed bilateral pleural effusions and she is on supplemental nasal cannula oxygen at 2 L. I will have cardiology participate in her care. Repeat limited echocardiogram will be performed today. [facility] Medical History Anemia Atrial fibrillation Clotting disorder Graves disease History of blood transfusion History of DVT (deep vein thrombosis) history of uterine surgery Hypotension Leukocytosis Low protein C activity level Multiple thyroid nodules Pulmonary emboli Seasonal allergies Thyroid disease Home Medications ascorbic acid (vitamin C) 500 mg tablet 500 mg PO DAILY@0800 SUPPLEMENT 01/22/16 [History Last Taken 03/09/23] cholecalciferol (vitamin D3) 50 mcg (2,000 unit) capsule 4,000 unit PO DAILY SUPPLEMENT 01/22/16 [History Last Taken 03/09/23] Biotin 10,000 mcg PO DAILY SUPPLEMENT 01/03/17 [History Last Taken 03/09/23] [place] 6 tab PO DAILY SUPPLEMENT 12/31/18 [History Last Taken 03/09/23] fluticasone fur. 100 mcg-umeclid 62.5 mcg-vilant 25 mcg inhalat.powder (Trelegy Ellipta) 1 inh inhalation DAILY COPD #60 ea 02/22/23 [Rx Last Taken 03/09/23] metoprolol succinate 25 mg tablet,extended release 24 hr 25 mg PO DAILY heart 02/23/23 [History Last Taken 03/09/23] bumetanide 0.5 mg tablet 0.5 mg PO DAILY HTN 03/11/23 [History Last Taken 03/09/23] colchicine 0.6 mg tablet 0.6 mg PO BID GOUT 03/11/23 [History Last Taken 03/09/23] dabigatran etexilate 150 mg capsule (Pradaxa) 150 mg PO BID DVT 03/11/23 [History Last Taken 03/09/23] ibuprofen 600 mg tablet 600 mg PO Q8H PAIN 03/11/23 [History Last Taken Unknown] pantoprazole 40 mg tablet,delayed release 40 mg PO BID GERD 03/11/23 [History Last Taken 03/09/23] spironolactone 25 mg tablet 25 mg PO DAILY HTN 03/11/23 [History Last Taken 03/09/23] vitamin B complex 1 cap PO DAILY SUPPLEMENT 03/11/23 [History Last Taken 03/09/23] zinc 50 mg capsule 50 mg PO DAILY SUPPLEMENT 03/11/23 [History Last Taken 03/09/23] Allergy/AdvReac Type Severity Reaction Status Date / Time No Known Allergies Allergy Verified 02/23/23 05:34 Family History Father Hyperlipemia Diabetes Grandmother Breast cancer Colon cancer Diabetes Hyperlipemia Surgical History Hx of cholecystectomy Previous back surgery Status post fine needle aspiration (~05/2020) [place] teeth extracted Social History Smoking Status: Current every day smoker tobacco type: cigarettes alcohol intake: current alcohol intake frequency: a few times a week Alcohol ty pe: beer and wine ROS Constitutional Constitutional: Denies anorexia, change in weight, chills, fatigue, fever(s), night sweats or weakness Eyes Eyes: Denies blurry vision, change in vision, discharge from eye(s) or eye pain Cardiovascular Cardiovascular: Reports chest pain, dyspnea on exertion and edema; Denies claudication or palpitations Respiratory/Chest Respiratory/Chest: Denies cough, hemoptysis, shortness of breath at rest or shortness of breath with exertion Gastrointestinal Gastrointestinal: Denies abdominal pain, coffee ground emesis, constipation, diarrhea, hematemesis, hematochezia, melena, nausea or vomiting Genitourinary Genitourinary: Denies dysuria, hematuria, urinary frequency, urinary hesitancy, urinary incontinence or urinary urgency Musculoskeletal Musculoskeletal: Denies back pain, joint pain, joint stiffness, joint swelling, myalgias or neck pain Neurologic Neurologic: Denies abnormal gait, abnormal speech, dizziness, focal weakness, headache(s), loss of vision, numbness, other visual disturbances, paresthesias, syncope or tingling Psychiatric Psychiatric: Denies anxiety, cognitive impairment, depression, irritability, mood swings or suicidal ideation Endocrine Endocrinology: Denies change in body appearance, cold intolerance, excessive sw eating, heat intolerance, polydipsia or polyuria Hematologic/Lymphatic Hematologic/Lymphatic: Denies none, anemia, easy bleeding, easy bruising or lymp hadenopathy Allergic/Immunologic Allergic/Immunologic: Denies rhinitis, urticaria, eczemia or asthma Vital Signs Vital Signs Vital Signs: 03/10/23 12:00 03/10/23 13:39 03/10/23 14:04 Temperature Temperature Source Pulse Rate 128 H 114 H 118 H Respiratory Rate 16 40 H 20 H Respiratory Effort Respiratory Depth Respiratory Pattern Blood Pressure 101/81 H 104/76 93/75 Blood Pressure Mean 87 85 81 Blood Pressure Source Blood Pressure Position Blood Pressure Location Pulse Ox 99 94 97 Oxygen Delivery Method Room Air Room Air Room Air Oxygen Flow Rate (L/min) 03/10/23 15:31 03/10/23 16:00 03/10/23 18:38 Temperature Temperature Source Pulse Rate 88 130 H 115 H Respiratory Rate 16 16 16 Respiratory Effort Respiratory Depth Respiratory Pattern Blood Pressure 104/70 104/76 119/81 H Blood Pressure Mean 81 85 93 Blood Pressure Source Blood Pressure Position Blood Pressure Location Pulse Ox 98 98 92 Oxygen Delivery Method Room Air Room Air Room Air Oxygen Flow Rate (L/min) 03/10/23 22:34 03/11/23 02:37 03/11/23 06:18 Temperature Temperature Source Pulse Rate 153 H 156 H 140 H Respiratory Rate 25 H 20 H 20 H Respiratory Effort Respiratory Depth Respiratory Pattern Blood Pressure 130/82 H 111/92 H 114/89 H Blood Pressure Mean 98 98 97 Blood Pressure Source Blood Pressure Position Blood Pressure Location Pulse Ox 91 91 93 Oxygen Delivery Method Room Air Nasal Cannula Nasal Cannula Oxygen Flow Rate (L/min) 2 2 03/11/23 07:09 03/11/23 07:57 03/11/23 08:19 Temperature 98.1 F Temperature Source Pulse Rate 131 H 169 H 146 H Respiratory Rate 24 H 40 H 26 H Respiratory Effort Respiratory Depth Respiratory Pattern Blood Pressure 117/91 H 126/96 H 101/79 Blood Pressure Mean 99 106 86 Blood Pressure Source Blood Pressure Position Blood Pressure Location Pulse Ox 90 92 94 Oxygen Delivery Method Nasal Cannula Room Air Oxygen Flow Rate (L/min) 2 03/11/23 08:49 03/11/23 09:30 03/11/23 08:50 Temperature 98.6 F 98.7 F Temperature Source Oral Oral Pulse Rate 144 H 124 H Respiratory Rate 18 24 H Respiratory Effort Short of Breath Respiratory Depth Normal Respiratory Pattern Tachypnea Blood Pressure 103/79 113/71 Blood Pressure Mean 87 85 Blood Pressure Source Monitor Monitor Blood Pressure Position Semi-Fowlers Semi-Fowlers Blood Pressure Location Left Arm Left Arm Pulse Ox 92 92 Oxygen Delivery Method Nasal Cannula Nasal Cannula Nasal Cannula Oxygen Flow Rate (L/min) 2 2 3 03/11/23 10:14 03/11/23 11:05 03/11/23 11:17 Temperature 99.5 F H Temperature Source Oral Pulse Rate 142 H 140 H Respiratory Rate 26 H Respiratory Effort Respiratory Depth Respiratory Pattern Blood Pressure 108/74 102/83 H Blood Pressure Mean 85 Blood Pressure Source Monitor Blood Pressure Position Semi-Fowlers Blood Pressure Location Left Arm Pulse Ox 92 92 Oxygen Delivery Method Nasal Cannula Nasal Cannula Oxygen Flow Rate (L/min) 2 2 Weight Weight: 97.7 kg Body Mass Index (BMI) 30.9 Physical Exam Const alert, oriented x3 and no apparent distress General Appearance: cooperative, well kempt and well developed Orientation / Consciousness: awake, oriented to person, oriented to place and oriented to time HEENT normocephalic, head/scalp atraumatic, hearing grossly normal bilaterally and moist oral mucous membranes Eyes PERRL, EOMs intact bilaterally and conjunctivae normal Neck supple, no JVD, thyroid normal and no carotid bruits General: trachea midline Resp normal respiratory effort, no retractions and no use of accessory muscles Resp Narrative: Decreased breath sounds are noted over the lower lungs bilaterally Auscultation: Negative for rales, rhonchi or wheezes Cardio no murmurs, no rub and no gallops Cardio Narrative: Heart rate and rhythm is irregular GI normal to inspection, nondistended, normoactive bowel sounds, soft to palpation, non-tender and non-distended Extremity Extremity Narrative: Patient has generalized nonpitting edema of the lower legs Skin no rashes or lesions noted General Skin Exam: no breakdown Neuro oriented x3, CN's II-XII intact bilaterally, moves all extremities, no focal motor deficits and no sensory deficits noted Sensorium / Orientation: awake, alert, oriented to person, oriented to place and oriented to time Speech: speech normal Psych affect normal Results Lab / Micro Data 03/10/23 07:46 03/10/23 07:46 Rhythm Strip Rhythm Strip: A-fib Rate: 147 Ectopy: None Assessment & Plan Assessment/Plan (1) Bilateral pleural effusion: PLAN: Plan 1. Acute pericarditis-patient will be admitted to PCU, she will be seen in consultation by cardiology, she will have a limited echocardiogram performed today, she will be maintained on colchicine and ibuprofen. #2 bilateral pleural effusions-patient will be placed on IV Lasix at a low dose, she is already on Aldactone #3 atrial fib with RVR-patient's rate limiting medications will be adjusted during her hospitalization, patient is on Pradaxa #4 acute anemia-etiology unclear-patient is on a PPI due to her use of ibuprofen. I will obtain a CBC today #5 hypokalemia-patient was placed on potassium supplementation, labs will be repeated tomorrow #6 hypoxia secondary to #2-patient's pulse ox will be monitored, she is currently on low-flow supplemental oxygen via nasal cannula Patient awaits transfer at this time to [facility] for further care. Total clinical time spent by myself addressing the patient's medical issues, reviewing all of her data, and collaborating with patient's care team: 55 minutes Charges/Coding Visit Charges Inpatient E&M: 16571 Init Hosp L2
[2023-03-11 12:39] LABS: Absolute Lymphocyte Count 1.73 X10^3/uL (0.83-4.51); Absolute Neutrophil Count 6.4 X10^3/uL (2.0-7.7); Basophil# 0.06 X10^3/uL; Basophil% 0.6 % (0-1); Hematocrit 29.7 % (37-47); Hemoglobin 9.3 g/dL (12.0-15.0); Lymphocyte # 1.73 X10^3/ul (0.83-4.51); Lymphocyte % 17.6 % (19-41); Mean Corp Hgb Conc 31.3 g/dL (32-36); Mean Corpuscular Hgb 28.8 pg (27.0-32.0); Mean Platelet Vol. 8.6 fl (6.2-12.0); Monocyte# 1.42 X10^3/uL; Monocyte% 14.5 % (0-10); NRBC Flagged by Analyzer 0 % (0-5); Neutrophil # 6.43 X10^3/uL (2.7-7.7); Neutrophil % 65.5 % (47-70); Platelet Count 539 K/mm3 (150-450); RBC Distribution Width CV 15.7 % (11.6-14.6); RBC Distribution Width SD 52.4 fl (35.1-43.9); Red Blood Count 3.23 M/mm3 (4.2-5.4); White Blood Count 9.8 K/mm3 (4.4-11.0)
[2023-03-11 13:07] LABS: Anion Gap 7 (5-15); BUN 15 mg/dL (7-18); Calcium,Total 9.8 mg/dL (8.5-10.1); Chloride 99 mmol/L (98-107); Creatinine, Serum 0.58 mg/dL (0.55-1.02); EST Glomerular Filtration Rate 117 mL/min (>60); Est Glom Filt Rate - Afr Amer 142 mL/min (>60); Estimated Creatinine Clearance 124.09 ml/min; Glucose 180 mg/dL (74-106); Potassium 4.3 mmol/L (3.5-5.1); Sodium Level 137 mmol/L (136-145)
--- NOTE | 2023-03-11 13:10 | PCM.CONS.C ---
Assessment & Plan Assessment/Plan (1) Pericardial effusion: PLAN: Appears to have fibrinous material in it. Patient is being transferred to [facility] for possible pericardial window. (2) Atrial fibrillation with RVR: PLAN: We will start the patient on amiodarone. She also appears to be volume overloaded. She has been given a dose of IV Lasix about 1 hour back. Will monitor closely. HPI Consult Data Date of Consult: 03/11/23 HPI Narrative HPI Narrative: KRISTI COOK, is a 52 F who presents with chest pain and shortness of breath. She does have orthopnea. Chest pain is left-sided, worse with deep inspiration. Patient had been hospitalized recently here at the hospital for pericarditis, pericardial effusion, peripheral pulmonary embolism, and new onset A-fib. Due to the worsening of her pericardial effusion, she was transferred to [facility] for further care. At [facility] she was observed and discharged home without any pericardial window or pericardiocentesis as it was felt that her effusion was not significant enough for a the procedure. Patient returned to the emergency room yesterday and was found to have moderate to large pericardial effusion with what appears to be fibrinous material. Plan was made to transfer the patient back to [facility] for possible window. Patient ended up getting admitted here as there was no bed available. She went into A-fib with RVR. She currently continues to have shortness of breath, orthopnea and left-sided chest pain when she moves or takes a deep breath. Her situation was discussed with outpatient facility physical therapist at [place], Dr. Euceda and she is being given priority for transfer when bed becomes available. Review of systems: All systems reviewed. All else is negative except that in the [facility] Medical History Anemia Atrial fibrillation Clotting disorder Graves disease History of blood transfusion History of DVT (deep vein thrombosis) history of uterine surgery Hypotension Leukocytosis Low protein C activity level Multiple thyroid nodules Pulmonary emboli Seasonal allergies Thyroid disease Home Medications ascorbic acid (vitamin C) 500 mg tablet 500 mg PO DAILY@0800 SUPPLEMENT 01/22/16 [History Last Taken 03/09/23] cholecalciferol (vitamin D3) 50 mcg (2,000 unit) capsule 4,000 unit PO DAILY SUPPLEMENT 01/22/16 [History Last Taken 03/09/23] Biotin 10,000 mcg PO DAILY SUPPLEMENT 01/03/17 [History Last Taken 03/09/23] [place] 6 tab PO DAILY SUPPLEMENT 12/31/18 [History Last Taken 03/09/23] fluticasone fur. 100 mcg-umeclid 62.5 mcg-vilant 25 mcg inhalat.powder (Trelegy Ellipta) 1 inh inhalation DAILY COPD #60 ea 02/22/23 [Rx Last Taken 03/09/23] metoprolol succinate 25 mg tablet,extended release 24 hr 25 mg PO DAILY heart 02/23/23 [History Last Taken 03/09/23] bumetanide 0.5 mg tablet 0.5 mg PO DAILY HTN 03/11/23 [History Last Taken 03/09/23] colchicine 0.6 mg tablet 0.6 mg PO BID GOUT 03/11/23 [History Last Taken 03/09/23] dabigatran etexilate 150 mg capsule (Pradaxa) 150 mg PO BID DVT 03/11/23 [History Last Taken 03/09/23] ibuprofen 600 mg tablet 600 mg PO Q8H PAIN 03/11/23 [History Last Taken Unknown] pantoprazole 40 mg tablet,delayed release 40 mg PO BID GERD 03/11/23 [History Last Taken 03/09/23] spironolactone 25 mg tablet 25 mg PO DAILY HTN 03/11/23 [History Last Taken 03/09/23] vitamin B complex 1 cap PO DAILY SUPPLEMENT 03/11/23 [History Last Taken 03/09/23] zinc 50 mg capsule 50 mg PO DAILY SUPPLEMENT 03/11/23 [History Last Taken 03/09/23] Allergy/AdvReac Type Severity Reaction Status Date / Time No Known Allergies Allergy Verified 02/23/23 05:34 Family History Father Hyperlipemia Diabetes Grandmother Breast cancer Colon cancer Diabetes Hyperlipemia Surgical History Hx of cholecystectomy Previous back surgery Status post fine needle aspiration (~05/2020) [place] teeth extracted Social History Smoking Status: Current every day smoker tobacco type: cigarettes alcohol intake: current alcohol intake frequency: a few times a week Alcohol type: beer and wine Physical Exam Const alert and oriented x3 HEENT normocephalic Eyes no scleral icterus Resp Resp Narrative: Bilateral crackles and wheezes Cardio Cardio Narrative: Irregular rhythm Extremity Extremity Narrative: 3+ edema Risk Stratification Risk Stratification Applicable: No Charges/Coding Visit Charges Inpatient E&M: 57838 Init Hosp L2 Objective Data Vital Signs: Vital Signs Temp Pulse Resp BP Pulse Ox O2 Del Method O2 Flow Rate 98.7 F 129 H 19 H 91/71 92 Room Air 3 03/11/23 12:44 03/11/23 12:44 03/11/23 12:44 03/11/23 12:44 03/11/23 12:00 03/11/23 12:44 03/11/23 12:00 Oxygen Flow Rate (L/min) 3 Oxygen Delivery Method Room Air Weight: 215 lb 6.266 oz Body Mass Index (BMI) 30.9 Lab / Micro Data 03/11/23 12:21 03/11/23 12:21 Labs: Laboratory Results - last 24 hr 03/11/23 12:21: WBC 9.8, RBC 3.23 L, Hgb 9.3 L, Hct 29.7 L, MCV 92.0, MCH 28.8, MCHC 31.3 L, RDW Std Deviation 52.4 H, RDW Coeff of Andres 15.7 H, Plt Count 539 H, MPV 8.6, Immature Gran % (Auto) 0.800, Neut % (Auto) 65.5, Lymph % (Auto) 17.6 L, [place] % (Auto) 14.5 H, Eos % (Auto) 1.0, Baso % (Auto) 0.6, Absolute Neuts (auto) 6.4, Absolute Lymphs (auto) 1.73, Nucleated RBC % 0, Sodium 137, Potassium 4.3, Chloride 99, Carbon Dioxide 31.0, Anion Gap 7, BUN 15, Creatinine 0.58, Estim Creat Clear Calc 124.09, Est GFR (MDRD) Af Amer 142, Est GFR (MDRD) Non-Af 117, BUN/Creatinine Ratio 26.0 H, Glucose 180 H, Calcium 9.8 Rhythm Strip Rhythm Strip: A-fib Rate: 147 Ectopy: None Cardiology Labs/Tests 03/11/23 12:21: WBC 9.8, RBC 3.23 L, Hgb 9.3 L, Hct 29.7 L, MCV 92.0, MCH 28.8, MCHC 31.3 L, Plt Count 539 H, MPV 8.6, Immature Gran % (Auto) 0.800, Neut % (Auto) 65.5, Lymph % (Auto) 17.6 L, [place] % (Auto) 14.5 H, Eos % (Auto) 1.0, Baso % (Auto) 0.6, Absolute Neuts (auto) 6.4, Nucleated RBC % 0, Sodium 137, Potassium 4.3, Chloride 99, Carbon Dioxide 31.0, Anion Gap 7, BUN 15, Creatinine 0.58, Est GFR (MDRD) Af Amer 142, Est GFR (MDRD) Non-Af 117, BUN/Creatinine Ratio 26.0 H, Glucose 180 H, Calcium 9.8 Rhythm: EKG: ECHO: Stress Test: Cardiac Cath: PCI: CT Surgery: Holter monitor: EPS: PPM: CXR: Chest CT Scan:
[2023-03-11] MEDS: Ipratropium/Albuterol Sulfate 3 ML AMPUL.NEB INHALATION (13:20)
[2023-03-11] MEDS: Amiodarone 150 MG in Dextrose 5%-Water (100mL Bag) 100 ML 600 MG IV BOLUS (14:32)
[2023-03-11] MEDS: Ibuprofen 600 MG Tablet PO (14:42)
[2023-03-11] MEDS: Amiodarone 360 MG in Dextrose 5% Viaflo Bag 192.8 ML 33.3 MG CONT INF (14:59)
--- NOTE | 2023-03-11 17:03 | NURSING ---
Report given to Cheryle CHRISTOPHER at [place]
== END 2023-03-11 19:16 | disposition short-term general hospital (02) | DRG 314 ==
LOC: ED 03-11 07:47 → PCU 03-11 10:44
PROVIDERS: Admitting Provider Internal Medicine; Emergency Provider Emergency Medicine; Visit Provider Internal Medicine
DX: I30.9 Acute pericarditis, unspecified (principal); I26.99 Other pulmonary embolism without acute cor pulmonale; J90 Pleural effusion, not elsewhere classified; I48.91 Unspecified atrial fibrillation; E05.00 Thyrotoxicosis with diffuse goiter without thyrotoxic crisis or storm; D64.9 Anemia, unspecified; F17.210 Nicotine dependence, cigarettes, uncomplicated; E87.6 Hypokalemia; R09.02 Hypoxemia; Z91.119 Patient's noncompliance with dietary regimen due to unspecified reason; Z79.899 Other long term (current) drug therapy; Z86.718 Personal history of other venous thrombosis and embolism
CPT/HCPCS: 71045; 80048; 83880; 84484; 85025; 85652; 93005; 93306; 93308; 94640; 99252; 99285; J7030; A4216; G0463; J1940; J2405

== ENCOUNTER 2023-07-04 19:48 | Emergency (ER) | payer OTHER, SELFPAY ==
[2023-07-04 19:50] VITALS: BP 184/117; PULSE 132; RESP 18; TEMP 36.3; O2SAT 97; BMI 25.4
[2023-07-04 19:53] VITALS: BP 184/117; PULSE 132; RESP 20; O2SAT 97
--- NOTE | 2023-07-04 19:58 | EKG12_ITS ---
Test Reason : CHEST OTHER Blood Pressure : / mmHG Vent. Rate : 138 BPM Atrial Rate : 153 BPM P-R Int : 000 ms QRS Dur : 072 ms QT Int : 348 ms P-R-T Axes : 000 053 016 degrees QTc Int : 527 ms Atrial fibrillation Nonspecific T wave abnormality Abnormal ECG Confirmed by Jared Frye ([id number]), publishing editor KATHRYN VALVERDE ([id number]) on 07/05/2023 10:57:29 AM Referred By: MELODY Confirmed By:Jared Frye
--- NOTE | 2023-07-04 20:08 | RAD_ITS ---
STUDY: X-RAY CHEST REASON FOR EXAM: Female, 52 years old. sob TECHNIQUE: Single AP portable view of the chest. COMPARISON: 03/10/2023 FINDINGS: The lungs are clear and expanded. There is no demonstrated pleural abnormality. Normal size heart. Normal mediastinum and rosangela. Normal visualized pulmonary arteries. Normal visualized aortic arch and descending thoracic aorta. Normal visualized thoracic spine. Normal visualized ribs, clavicles, and shoulders. There is no demonstrated abnormality of the visualized soft tissue structures of the upper abdomen. RAD/Chest 1 View (Portable) IMPRESSION: Normal x-ray examination of the chest. Electronically Signed: Rigoberto Ham MD at 20:47 EST ,
[2023-07-04 20:23] LABS: Absolute Lymphocyte Count 1.94 X10^3/uL (0.83-4.51); Absolute Neutrophil Count 5.7 X10^3/uL (2.0-7.7); Basophil# 0.04 X10^3/uL; Basophil% 0.4 % (0-1); Eosinophil# 0.55 X10^3/uL; Eosinophils% 5.8 % (0-5); Hematocrit 42.6 % (37-47); Lymphocyte # 1.94 X10^3/ul (0.83-4.51); Lymphocyte % 20.6 % (19-41); Mean Corp Hgb Conc 32.9 g/dL (32-36); Mean Corpuscular Hgb 26.8 pg (27.0-32.0); Mean Corpuscular Volume 81.6 fL (81-99); Mean Platelet Vol. 8.9 fl (6.2-12.0); Monocyte# 1.17 X10^3/uL; Monocyte% 12.4 % (0-10); NRBC Flagged by Analyzer 0 % (0-5); Neutrophil # 5.68 X10^3/uL (2.7-7.7); Neutrophil % 60.5 % (47-70); Platelet Count 335 K/mm3 (150-450); RBC Distribution Width CV 16.9 % (11.6-14.6); RBC Distribution Width SD 49.9 fl (35.1-43.9); Red Blood Count 5.22 M/mm3 (4.2-5.4); White Blood Count 9.4 K/mm3 (4.4-11.0)
[2023-07-04 20:40] LABS: Anion Gap 10 (5-15); BUN 18 mg/dL (7-18); BUN/Creat Ratio 35.8 RATIO (10-20); Calcium,Total 10.9 mg/dL (8.5-10.1); Chloride 104 mmol/L (98-107); EST Glomerular Filtration Rate 137 mL/min (>60); Est Glom Filt Rate - Afr Amer 166 mL/min (>60); Estimated Creatinine Clearance 143.95 ml/min; Glucose 196 mg/dL (74-106); Potassium 3.9 mmol/L (3.5-5.1); Sodium Level 137 mmol/L (136-145); Troponin-I HS 5 pg/mL (3.0-54.0)
[2023-07-04 21:05] VITALS: BP 110/79; PULSE 117; RESP 20; O2SAT 95
[2023-07-04] MEDS: dilTIAZem 25 MG/5 ML Vial IV BOLUS (21:07)
[2023-07-04 21:15] VITALS: BP 96/79; PULSE 84; RESP 18; O2SAT 97
[2023-07-04 21:43] VITALS: BP 97/78; PULSE 90; RESP 18; O2SAT 97
[2023-07-04 21:49] VITALS: BP 97/78; PULSE 90; RESP 17; TEMP 36.3; O2SAT 97
--- NOTE | 2023-07-04 22:43 | ED.VIS.DYS ---
HPI History of Present Illness Chief Complaint: Shortness of Breath Narrative Narrative: 52-year-old female presenting with shortness of breath since yesterday. She has a history of CHF, A-fib with RVR. She is anticoagulated to prevent PE as she has a history of this as well. States she was sent to [facility] secondary to pericarditis and pericardial effusion. She states they treat her back pain with colchicine and steroids. She got better. She had a follow-up echocardiogram which was negative. Patient states that she gets up and walks now she feels short of breath and on since yesterday. Patient also had a significant history of Graves' disease she is on methimazole. She states she is on 30 mg currently which is 10 mg 3 times daily. She states that her primary care doctor thought she can go up on it but she does not tolerate it very well. She is not having chest pain or palpitations. No fevers or chills, or cough. She is not having nausea or vomiting. [facility] Medical History Anemia Atrial fibrillation Clotting disorder Graves disease History of blood transfusion History of DVT (deep vein thrombosis) history of uterine surgery Hypotension Leukocytosis Low protein C activity level Multiple thyroid nodules Peritonitis Pulmonary emboli Seasonal allergies Thyroid disease Home Medications Biotin 10,000 mcg PO DAILY SUPPLEMENT 01/03/17 [History Last Taken 03/09/23] bumetanide 0.5 mg tablet 1 mg PO DAILY HTN 03/11/23 [History Last Taken 03/09/23] dabigatran etexilate 150 mg capsule (Pradaxa) 150 mg PO BID DVT 03/11/23 [History Last Taken 03/09/23] spironolactone 25 mg tablet 25 mg PO DAILY HTN 03/11/23 [History Last Taken 03/09/23] albuterol sulfate 90 mcg/actuation aerosol inhaler 2 puff inhalation Q6H PRN shortness of breath or wheezing 04/07/23 [History Last Taken Unknown] methimazole 5 mg tablet 10 mg PO TID 04/07/23 [History Last Taken Unknown] sotalol 80 mg tablet 80 mg PO BID 04/07/23 [History Last Taken Unknown] iodine supplement See Rx Instructions PO .COMPLEX 04/10/23 [History Last Taken Unknown] hydrocodone-acetaminophen 5-325mg 5mg-325mg 1 tab PO Q12H PRN pain 07/04/23 [History Last Taken Unknown] Allergy/AdvReac Type Severity Reaction Status Date / Time No Known Allergies Allergy Verified 07/04/23 19:50 Family History Father Hyperlipemia Diabetes Muscular dystrophy Grandmother Breast cancer Colon cancer Diabetes Hyperlipemia Surgical History History of uterine suspension procedure Hx of cholecystectomy Previous back surgery Status post fine needle aspiration (~05/2020) [place] teeth extracted Social History Smoking Status: Current every day smoker tobacco type: cigarettes alcohol intake: current alcohol intake frequency: a few times a week Alcohol type: beer and wine details: ocassional alcohol use ROS ROS ED Constitutional Constitutional ED: Denies chills, fever(s) or sweats Eyes Eyes: Denies blurry vision or change in vision ENT ENT ED: Denies ear pain or sore throat Cardiovascular Cardiovascular: Reports palpitations; Denies chest pain or racing heartbeat Respiratory/Chest Respiratory/Chest: Reports dyspnea; Denies cough or sputum Gastrointestinal Gastrointestinal: Denies abdominal pain, constipation, diarrhea, nausea or vomiting Genitourinary Genitourinary ED: Denies dysuria, hematuria or urinary frequency Musculoskeletal Musculoskeletal: Denies arthralgias, myalgias or neck pain Integumentary Denies abscess, Abrasions or rash Neurologic Neurologic: Denies headache(s), paresthesias or weakness Psychiatric Psychiatric: Denies anxiety, depression, suicidal ideation or suicidal thoughts Endocrine Endocrinology: Denies polydipsia or polyuria EXAM Physical Exam Const Vital Signs: 07/04/23 19:50 07/04/23 19:53 07/04/23 20:11 Temperature 97.4 F L Temperature Source Temporal Pulse Rate 132 H 132 H Respiratory Rate 18 20 H Respiratory Effort Respiratory Depth Respiratory Pattern Blood Pressure 184/117 H 184/117 H Blood Pressure Mean 139 139 Pulse Ox 97 97 Oxygen Delivery Method Room Air Room Air Room Air 07/04/23 20:11 07/04/23 20:11 07/04/23 21:05 Temperature Temperature Source Pulse Rate 117 H Respiratory Rate 20 H Respiratory Effort Short of Breath Respiratory Depth Normal Respiratory Pattern Tachypnea Blood Pressure 110/79 Blood Pressure Mean 89 Pulse Ox 95 Oxygen Delivery Method Room Air Room Air Room Air 07/04/23 21:15 07/04/23 21:43 07/04/23 21:49 Temperature 97.4 F L Temperature Source Pulse Rate 84 90 90 Respiratory Rate 18 18 17 Respiratory Effort Respiratory Depth Respiratory Pattern Blood Pressure 96/79 97/78 97/78 Blood Pressure Mean 84 84 84 Pulse Ox 97 97 97 Oxygen Delivery Method Room Air Room Air Positive well nourished General Appearance ED: NAD HEENT Reports moist mucous membranes atraumatic Eyes PERRL and EOMs intact bilaterally Resp normal respiratory effort Auscultation: Negative for rales or rhonchi Cardio Rate: tachycardic Rhythm: abnormal rhythm irregularly irregular Extremity normal to inspection General Extremety ED: Negative for edema General Extremity: Negative for edema Neuro oriented x3 and CN's II-XII intact bilaterally Sensorium / Orientation: alert Motor Exam: strength 5/5 throughout Psych mental status grossly normal Skin No no wounds and No skin turgor normal MDM MDM MDM Narrative Medical decision making narrative: Patient presenting with dyspnea. She is found to be in A-fib with RVR. EKG on my interpretation shows A-fib with a rapid ventricular response at 138 bpm. Patient given Cardizem 25 mg. CBC was obtained to assess white blood cell count, hemoglobin, platelets. BMP to assess renal function, electrolytes, glucose. High-sensitivity troponin EKG to assess for ischemia. Chest x-ray was obtained to rule out CHF or pneumonia this is negative. Blood work unremarkable. BNP 69. High-sensitivity opponent is 5. Reevaluation patient doing well. Heart rate is down to 90. She feels well. We discussed at length her medical history. She states that she supposed to follow-up with her PCP in regards to her methimazole. She also has follow-up with cardiology at [facility]. I recommended that she continue her medications as prescribed and follow-up with her PCP. She could then have her PCP obtain guidance from cardiology and endocrinology as needed since she has autoimmune disease as well. She was amenable to this. She discharged home in stable condition. Impression: 1. A-fib with RVR 2. Dyspnea Lab Data Attestation: I reviewed the patient's lab results. Labs: Laboratory Results - last 24 hr 07/04/23 20:09 WBC 9.4 RBC 5.22 Hgb 14.0 Hct 42.6 MCV 81.6 MCH 26.8 L MCHC 32.9 RDW Std Deviation 49.9 H RDW Coeff of Andres 16.9 H Plt Count 335 MPV 8.9 Immature Gran % (Auto) 0.300 Neut % (Auto) 60.5 Lymph % (Auto) 20.6 [place] % (Auto) 12.4 H Eos % (Auto) 5.8 H Baso % (Auto) 0.4 Absolute Neuts (auto) 5.7 Absolute Lymphs (auto) 1.94 Nucleated RBC % 0 Sodium 137 Potassium 3.9 Chloride 104 Carbon Dioxide 23.0 Anion Gap 10 BUN 18 Creatinine 0.50 L Estim Creat Clear Calc 143.95 Est GFR (MDRD) Af Amer 166 Est GFR (MDRD) Non-Af 137 BUN/Creatinine Ratio 35.8 H Glucose 196 H Calcium 10.9 H Troponin I High Sens 5 B-Natriuretic Peptide 69.0 Radiography Diagnostic Testing: Clinical Impression(s) from Imaging Studies Chest X-Ray 07/04/23 20:08 IMPRESSION: Normal x-ray examination of the chest. Electronically Signed: Rigoberto Ham MD at 20:47 EST , Discharge Plan Triage Chief Complaint: Shortness of Breath ED Provider: Bulmaro Maurer Dx/Rx/DC Orders Instructions: ED AFIB Prescriptions: No Action iodine supplement See Rx Instructions PO .COMPLEX Rx Instructions: daily orally; sotalol 80 mg tablet 80 mg PO BID albuterol sulfate 90 mcg/actuation HFA aerosol inhaler 2 puff inhalation Q6H PRN (Reason: shortness of breath or wheezing) methimazole 5 mg tablet 10 mg PO TID Biotin 10,000 MCG tablet 10,000 mcg PO DAILY spironolactone 25 mg tablet 25 mg PO DAILY Patient Comments: TAKE 1 TABLET BY MOUTH ONCE DAILY WITH A MEAL dabigatran etexilate [Pradaxa] 150 mg capsule 150 mg PO BID bumetanide 0.5 mg tablet 1 mg PO DAILY hydrocodone-acetaminophen 5-325 mg tablet 1 tab PO Q12H PRN (Reason: pain) Patient Comments: TAKE ONE TABLET BY MOUTH TWICE DAILY NEEDED FOR PAIN Primary Care Provider: OSCAR VILLAGOMEZ Referrals: OSCAR VILLAGOMEZ [Other] Disposition Disposition: Home, Self Care Discharge Date/Time: 07/04/23 21:49
== END 2023-07-04 21:49 | disposition home or self-care (01) ==
PROVIDERS: Emergency Provider Student in an Organized Health Care Education/Training Program; Visit Provider Student in an Organized Health Care Education/Training Program
DX: I48.91 Unspecified atrial fibrillation (principal); I50.9 Heart failure, unspecified; R06.00 Dyspnea, unspecified; F17.210 Nicotine dependence, cigarettes, uncomplicated; Z79.51 Long term (current) use of inhaled steroids; Z86.718 Personal history of other venous thrombosis and embolism
CPT/HCPCS: 71045; 80048; 83880; 84484; 85025; 93005; 94760; 96374; 99282; A4216

== ENCOUNTER → 2024-06-21 | Outpatient (CLI) | payer OTHER, SELFPAY ==
[2024-06-21 18:42] LABS: Free T3 3.3 pg/mL (2.18-3.98); T4 Free Direct 0.89 ng/dL (0.76-1.46); Thyroid Stim Hormone (TSH) 0.627 uIU/mL (0.358-3.740)
== END | disposition home or self-care (01) ==
DX: E03.9 Hypothyroidism, unspecified (principal)
CPT/HCPCS: 36415; 84439; 84443; 84481